=== PATIENT | female | born 1960 | race Two or more races ===

== ENCOUNTER 2018-10-22 08:51 | Inpatient (IN) | payer MEDICAID ==
[~2018-10-22] VITALS: Ht 172.7 cm; Wt 161.5 kg
[2018-10-22] VITALS (64 sets, daily range): BP systolic 58–126; BP diastolic 27–68
--- NOTE | 2018-10-22 09:16 | NUR ---
DWAYNE blankenship, 58 y/o female, 88% sat on room air, confused.
--- NOTE | 2018-10-22 09:17 | NUR ---
Placed on NRB mask, ABG to be done, RT at bedside.
[2018-10-22 09:27] LABS: BASOPHILS % (AUTO) 0.3 % (0.0-2.0); EOSINOPHILS % (AUTO) 0.2 % (0.0-6.0); HEMATOCRIT 29 % (33-45); HEMOGLOBIN 9.3 g/dL (11.5-14.8); LYMPHOCYTES # (AUTO) 0.9 /CMM (0.8-4.8); LYMPHOCYTES % (AUTO) 5.5 % (20.0-44.0); MEAN CORPUSCULAR HGB CONC 32 g/dl (31.0-36.0); MEAN CORPUSCULAR VOLUME 99 fL (82-100); MONOCYTES # (AUTO) 1.4 /CMM (0.1-1.30); NEUTROPHILS # (AUTO) 13.5 /CMM (1.8-8.9); PLATELET COUNT (AUTO) 198 /CMM (150-450); RED BLOOD CELL COUNT(AUTO) 2.92 MIL/uL (4.0-5.2); WHITE BLOOD COUNT (AUTO) 15.8 K/uL (4.3-11.0)
[2018-10-22 09:32] LABS: ABG BASE EXCESS -4.1 mmol/L; ABG OXYGEN SATURATION 99.3 % (92.0-98.5); ABG PCO2 65.8 mmHg (35.0-45.0); ABG PH 7.193 (7.350-7.450); ABG PO2 270.8 mmHg (75.0-100.0); COHb 2.6 % (0.5-1.5); MetHb 0.5 % (0.0-1.5); O2Hb 96.2 % (94.0-97.0); SITE, ABG Left Brachial; VENT MODE, BG non reb 15L
--- NOTE | 2018-10-22 09:46 | NUR ---
at bedside for Central line insertion.
--- NOTE | 2018-10-22 09:59 | NUR ---
Left fem central line placed by
[2018-10-22] MEDS ORDERED: PROPOFOL 100 ML ONE (10:03)
--- NOTE | 2018-10-22 10:04 | NUR ---
LABS DRAWNED VIA CENTRAL CATH AND SENT TO LAB.
[2018-10-22 10:20] LABS: CALCIUM, SERUM 8.7 mg/dL (8.5-10.1); CARBON DIOXIDE 27 mmol/L (21-32); CHLORIDE 99 mmol/L (98-107); CREATININE 3.2 mg/dL (0.6-1.3); GLUCOSE 153 mg/dL (74-106); POTASSIUM 5.9 mmol/L (3.5-5.1); SODIUM SERUM 127 mmol/L (136-145); UREA NITROGEN, BLOOD 42 mg/dL (7-18)
--- NOTE | 2018-10-22 10:20 | NUR ---
Rapid intubation done by MD, 30 Etomidate and 120 Succ given.
--- NOTE | 2018-10-22 10:25 | NUR ---
RT PT CAME FOR RESP DISTRESS, INTUBATED WITH 7.5CM AT 25CM LIP LINE ECO2 COLOR CHANGE EQUAL BILATERAL CHEST RISE, XRAY DONE PULLED OUT TUBE TO 23CM LIP LINE SECURED ON MECH VENT PER MD ORDERS OF AC 14 550 +5 100% DICK WELL NO RESP DISTRESS ATT WILL CONT TO MONITOR Addendum: 10/22/18 at 1100 by MARY BETH PAULINO RT Amended: Links added.
--- NOTE | 2018-10-22 10:28 | NUR ---
CXR at bedside
[2018-10-22] MEDS ORDERED: PIPERACILLIN /TAZOBACTAM 3.375 G in IV D5W 50 ML IV ONE (10:30)
[2018-10-22] MEDS ORDERED: Calcium Gluconate 1GM/10ML 4.65 MEQ in IV NS 0.9% 50 ML IV ONE (10:30)
[2018-10-22] MEDS ORDERED: VANCOMYCIN 1 GM in IV D5W 250 ML IV ONE (10:30)
--- NOTE | 2018-10-22 10:30 | NUR ---
Garcia placed 16 fr.
[2018-10-22 10:31] LABS: APPEARANCE,URINE Turbid (CLEAR); BILIRUBIN,URINE MODERATE (NEGATIVE); BLOOD, URINE Negative Ery/uL (NEGATIVE); COLOR,URINE Dark (YELLOW); KETONES,URINE Trace (NEGATIVE); LEUKOCYTE ESTERASE ,URINE Negative (NEGATIVE); NITRITE, URINE Negative (NEGATIVE); PROTEIN,URINE 100 mg/dl (NEGATIVE); UGLUCOSE Negative (NEGATIVE)
[2018-10-22 10:33] LABS: ALANINE AMINOTRANSFERASE 41 U/L (12-78); ALKALINE PHOSPHATASE 193 U/L (46-116); ASPARTATE AMINOTRANSFERASE 122 U/L (15-37); B-TYPE NATRIURETIC PEPTIDE 218 PG/ML (0-125); BILIRUBIN,DIRECT 2.6 mg/dL (0.0-0.2); BILIRUBIN,TOTAL 3.6 mg/dL (0.2-1.0)
[2018-10-22 10:34] LABS: ALBUMIN 1.3 g/dL (3.4-5.0)
[2018-10-22 10:42] LABS: BACTERIA,URINE Few /HPF (None Seen); RBC,URINE 0-2 /HPF (0-2); SQUAMOUS EPITHELIAL CELL,UR Few /HPF (None Seen); WBC,URINE 0-2 /HPF (0-3)
--- NOTE | 2018-10-22 10:52 | NUR ---
SBP 50's
[2018-10-22] MEDS: NOREPINEPHRINE 8 MG in IV D5W 500 ML IV PRN ×2 (10:54→12:37)
[2018-10-22] MEDS ORDERED: IV NS 0.9% 1,000 ML BAG IV ONE ×2 (11:00→11:30)
--- NOTE | 2018-10-22 11:45 | NUR ---
Report given to Aram HARVEY RN
--- NOTE | 2018-10-22 11:52 | NUR ---
Transferred via ACLS protocol, no significant changes. Placed to bed repositioned.
--- NOTE | 2018-10-22 12:00 | NUR ---
PT RECEIVED PT IN ROOM 263, REPORT FROM JENNIFER, FILM CUTTER. LEVOPHED INFUSING AT 18 MICS, PROPOFOL AT 30MICS. CALM AND COOPERATIVE. WILL TITRATE LEVOPHED NEEDED TO MAINTAIN BP >90. ETT 7.5 25CM AT THE LIP. RHONCHI BILAT CLEARED WITH SUCTIONING. ALIYAH SO HYPOACTIVE. RLE STAPES NOTED, VENOUS STASIS VS. ERYSIPELAS NOTED, MID BACK REDNESS NOTED, PHOTOS OBTAINED. PT REPOSITIONED FOR COMFORT, TEMP 96.8 WARMING BLANKETS APED.
[2018-10-22] MEDS ORDERED: ALBUTEROL FS 2.5 MG/0.5 ML VIAL.NEB NEB PRN (13:00)
[2018-10-22] MEDS ORDERED: PIPERACILLIN /TAZOBACTAM 2.25 G in IV D5W 50 ML IV SCH (13:00)
[2018-10-22] MEDS ORDERED: IPRATROPIUM NEB FS 0.5 MG/2.5 ML AMPUL.NEB NEB PRN (13:00)
[2018-10-22] MEDS ORDERED: DEXTROSE 50%-WATER 50 ML DISP.SYRIN IV PRN (13:00)
[2018-10-22] MEDS ORDERED: IV NS 0.9% 1,000 ML BAG IV PRN (13:00)
--- NOTE | 2018-10-22 13:10 | NUR ---
Partial denture given to DIE ENGRAVERLOOB Cruz.
[2018-10-22] MEDS ORDERED: FEE PK DOSING 1 MIN EA MC ONE (13:25)
--- NOTE | 2018-10-22 13:38 | NUR ---
RT PULLED TUBE 1CM AT 22CM JACQUELINE MICHELLE Addendum: 10/22/18 at 1343 by MARY BETH PAULINO RT Amended: Links added.
[2018-10-22] MEDS ORDERED: NOREPINEPHRINE 8 MG in IV D5W 500 ML IV PRN ×4 (14:00)
[2018-10-22] MEDS: PROPOFOL 100 ML IV PRN ×3 (14:22→20:26)
[2018-10-22] MEDS: IV NS 0.9% 1,000 ML IV PRN (14:26)
[2018-10-22] MEDS: PANTOPRAZOLE 40 MG VIAL IV SCH (14:35)
[2018-10-22] MEDS ORDERED: ETOMIDATE 2 MG/ML VIAL IV ONE (15:20)
[2018-10-22] MEDS ORDERED: SUCCINYLCHOLINE CHLORIDE 20 MG/ML VIAL IV ONE (15:20)
--- NOTE | 2018-10-22 16:30 | NUR ---
KALIE FR #[id number] INSERTED VERIFIED WITH JENNIFER ROBLEDO RN
--- NOTE | 2018-10-22 17:00 | NUR ---
K6.1 FR HAIR NOTIFIED.
[2018-10-22] MEDS ORDERED: BISA10SU8 RC (17:14)
[2018-10-22] MEDS ORDERED: BENA20TA9 PO (17:14)
[2018-10-22] MEDS ORDERED: FURO-144 PO (17:14)
[2018-10-22] MEDS ORDERED: RIFA550T PO (17:14)
[2018-10-22] MEDS ORDERED: MAGN400O6 PO (17:14)
[2018-10-22] MEDS ORDERED: FERR325T23 PO (17:14)
[2018-10-22] MEDS ORDERED: INSU100V11 SQ (17:14)
[2018-10-22] MEDS ORDERED: MORP15TA PO (17:14)
[2018-10-22] MEDS ORDERED: HYDR-4384 PO (17:14)
[2018-10-22] MEDS ORDERED: LACT10SO PO (17:14)
[2018-10-22] MEDS ORDERED: NA P133E RC (17:14)
[2018-10-22] MEDS ORDERED: TRAM50TA2 PO (17:14)
[2018-10-22] MEDS ORDERED: MULT-447 PO (17:14)
[2018-10-22] MEDS ORDERED: BLOO-668 IN (17:15)
[2018-10-22] MEDS: INSULIN REGULAR, HUMAN 100 UNIT/ML 3 ML VIAL SQ PRN (17:43)
[2018-10-22] MEDS: PIPERACILLIN /TAZOBACTAM 3.375 G in IV D5W 100 ML IV SCH (17:43)
[2018-10-22] MEDS: BLOOD SUGAR DIAGNOSTIC 1 EACH STRIP IN SCH (17:44)
[2018-10-22] MEDS ORDERED: SODIUM POLYSTYRENE SULFONATE 15 G/60 ML BOTTLE PO ONE ×2 (18:30→19:00)
--- NOTE | 2018-10-22 19:48 | NUR ---
PT REC'D ORALLY INTUBATED VIA ETT SZ #7.5 SECURED @ 22CM AT THE LIP LINE. PT APPEARS COMFORTABLE AND SHOWS NO SIGNS OF RESP DISTRESS OR SOB ON CURRENT VENTILATOR SETTINGS. SX'D FOR SMALL AMT OF THICK YELLOW SECRETIONS. ALARMS ARE SET AND AUDIBLE. VENT PLUGGED INTO RED OUTLET. AMBU BAG BEDSIDE. WILL CONTINUE TO MONITOR CLOSELY Addendum: 10/22/18 at 1950 by CANDIDA HOSKINS RT Amended: Links added.
[2018-10-22] MEDS: NOREPINEPHRINE 16 MG in IV D5W 500 ML IV PRN (20:14)
--- NOTE | 2018-10-22 20:30 | NUR ---
RN NOTES RECEIVED PT SEDATED WITH DIPRIVAN WITH ETT 7.5 ANS 22 CM AT LIP CONNECTED TO VENT SETTING AC 14 TV 550 FIO2 80% WITH PEEP 5 TOLERATED WELL SATURATION 100%. NSR ON TELE MONITOR. RESPONSIVE TO PAIN WITH OGT INTACT AND PATENT CHECKED. IV SITE ON LEFT FEMORAL TLC RECEIVED WITH LEVO @ 24 MCG/MIN AND DIPRIVAN @ 30 MCG/KG/MIN TITRATED PROTOCOL ORDER. JUAN F HUGGER IN PLACED DUE TO HYPOTHERMIA REMOVED AT THIS TIME DUE TO TEMP 99.5. OFFLOADED EXT WITH PILLOWS. TURNED AND REPOSITIONED. PT IS CLEANED AND DRY. WILL CONTINUE TO MONITOR.
[2018-10-22] MEDS: HEPARIN SODIUM, PORCINE 5000 UNITS/1 ML VIAL SQ SCH (20:38)
[2018-10-22] MEDS ORDERED: SODIUM POLYSTYRENE SULFONATE 15 G/60 ML BOTTLE ONE (20:55)
--- NOTE | 2018-10-22 21:00 | NUR ---
RN NOTES FIO2 CHANGED TO 60% BY CANDIDA RT. PT TOLERATED WELL SATURATION 100%. WILL CONTINUE MONITOR
--- NOTE | 2018-10-22 23:10 | NUR ---
RN NOTES CHANGED FIO2 TO 50% BY RT. SATURATION 100%. TOLERATED WELL
[2018-10-23] VITALS (112 sets, daily range): BP systolic 69–119; BP diastolic 31–93
[2018-10-23] MEDS: PROPOFOL 100 ML IV PRN ×5 (00:04→22:59)
[2018-10-23] MEDS: BLOOD SUGAR DIAGNOSTIC 1 EACH STRIP IN SCH ×5 (00:07→23:43)
[2018-10-23] MEDS: IV NS 0.9% 1,000 ML IV PRN ×3 (00:10→21:27)
--- NOTE | 2018-10-23 01:15 | NUR ---
RN NOTES FIO2 CHANGED TO 40% BY CANDIDA RT. PT REMAINED SEDATED SATURATION 100% TOLERATED WELL. WILL CONTINUE TO MONITOR.
[2018-10-23] MEDS ORDERED: NOREPINEPHRINE 4 MG/4 ML AMPUL IV ONE (04:14)
[2018-10-23] MEDS: NOREPINEPHRINE 16 MG in IV D5W 500 ML IV PRN ×4 (04:22→23:44)
[2018-10-23 04:34] LABS: BASOPHILS # (AUTO) 0.1 /CMM (0.0-0.2); BASOPHILS % (AUTO) 0.5 % (0.0-2.0); EOSINOPHILS % (AUTO) 1.2 % (0.0-6.0); HEMATOCRIT 27 % (33-45); HEMOGLOBIN 8.9 g/dL (11.5-14.8); LYMPHOCYTES # (AUTO) 2.3 /CMM (0.8-4.8); LYMPHOCYTES % (AUTO) 13.3 % (20.0-44.0); MEAN CORPUSCULAR HGB CONC 33 g/dl (31.0-36.0); MEAN CORPUSCULAR VOLUME 95 fL (82-100); MONOCYTES # (AUTO) 2.1 /CMM (0.1-1.30); NEUTROPHILS # (AUTO) 12.8 /CMM (1.8-8.9); PLATELET COUNT (AUTO) 180 /CMM (150-450); RED BLOOD CELL COUNT(AUTO) 2.85 MIL/uL (4.0-5.2); WHITE BLOOD COUNT (AUTO) 17.6 K/uL (4.3-11.0)
[2018-10-23 04:45] LABS: CALCIUM, SERUM 7.8 mg/dL (8.5-10.1); POTASSIUM 5.7 mmol/L (3.5-5.1)
[2018-10-23] MEDS: PIPERACILLIN /TAZOBACTAM 3.375 G in IV D5W 100 ML IV SCH ×2 (05:30→17:15)
--- NOTE | 2018-10-23 07:08 | NUR ---
RN NOTES PATIENT REMAINED IN THE SAME CONDITION. CONITNEU WITH ETT AND VENT SETTING ORDERED. NO ACUTE RESPIRATORY DISTRESS. TMAX 100 DEGREE. FHARENHEIGHT. IV SITE ON LEFT FEMORAL REMAINED INTACT AND PATENT WITH DIPRIVAN AND LEVOPHED RUNNING TITRATED ORDERED. ALL DUE MEDICINE ADMINISTERED ORDERED. PT ICS CLEANED AND DRY. ENDORSED CONTINUITY OF CARE TO AM NURSE. PT WILL HAVE THORACENTESIS TODAY CONSENT SIGNED.
--- NOTE | 2018-10-23 08:17 | NUR ---
INITIAL DRYWALL PROFESSIONAL NOTE RCVD PT LIGHTLY SEDATED ON DIPRIVAN, ABLE TO OPEN EYES TO NAME AND FOLLOW SIMPLE COMMANDS SUCH OPENING MOUTH AND STICKING TONGUE OUT, AND SQUEEZING WITH HANDS, INTUBATED 7.5 22 AT LIP TOLERATING ORDERED VENT SETTINGS WELL, SR ON MONITOR. OG-TUBE CLOGGED, NEW OG-TUBE INSERTED. LIMON TO GRAVITY DRAINING ALEXIS COLORED URINE. DEVYN OVER RIGHT KNEE REMAIN INTACT. LEFT FEMORAL TLC C/D/I/PATENT, IVF INFUSING ORDERED. PT ON HIGH DOSE LEVOPHED. WILL CONTINUE TO MONITOR PT FOR SAFETY AND COMFORT. BE DIN LOW AND LOCKED POSITION. HEAD OF BED ELEVATED, CALL LIGHT WITHIN REACH.
[2018-10-23] MEDS: HEPARIN SODIUM, PORCINE 5000 UNITS/1 ML VIAL SQ SCH ×2 (08:39→21:32)
[2018-10-23] MEDS ORDERED: IV NS 0.9% 500 ML IV ONE (10:00)
[2018-10-23] MEDS ORDERED: SODIUM POLYSTYRENE SULFONATE 15 G/60 ML BOTTLE PO ONE (10:00)
[2018-10-23] MEDS: VANCOMYCIN 1 GM in IV D5W 250 ML IV SCH (11:00)
--- NOTE | 2018-10-23 11:02 | NUR ---
WOUND CARE CONSULT: PT PRESENTS WITH MULTIPLE SKIN ISSUES INCLUDING BILATERAL BUTTOCKS INTACT DEEP TISSUE INJURIES, MIDBACK STAGE 1 REDNESS, RT KNEE DEVYN, SCARRING TO RT LOWER LEG AND RT BREASTFOLD REDNESS WITH CRUSTED AREA, ALL PRESENT ON ADMISSION. PT ON [place] ETS AIR BED. PT INTUBATED AT THIS TIME. ASHLY LAST NOTED. ALL SKIN PROTECTION AND WOUND CARE RECOMMENDATIONS DISCUSSED WITH NURSING STAFF. CURRENT JUSTIN SCORE IS 12. WILL SEE PRN. PEREZ IN AGREEMENT WITH PLAN OF CARE. Addendum: 10/23/18 at 1105 by CINDY CHAVEZ WNDNU Amended: Links added.
[2018-10-23 11:03] LABS: ABG OXYGEN SATURATION 94.4 % (92.0-98.5); ABG PCO2 46.9 mmHg (35.0-45.0); ABG PH 7.327 (7.350-7.450); ABG PO2 82.9 mmHg (75.0-100.0); AaDO2 148.4 mmHg; COHb 0.1 % (0.5-1.5); MetHb 0.7 % (0.0-1.5); O2Hb 93.6 % (94.0-97.0); PEEP,BG 5 cm H2O; SITE, ABG Right Radial; VT, ABG 550 mL
[2018-10-23] MEDS: INSULIN REGULAR, HUMAN 100 UNIT/ML 3 ML VIAL SQ PRN ×3 (11:15→23:55)
--- NOTE | 2018-10-23 11:28 | NUR ---
PUBLIC ADDRESS SYSTEMS MECHANIC NOTE SPOKE WITH PT'S DAUGHTER ALISON OVER THE PHONE, SHE WAS UPDATED ON PT'S CONDITION, QUESTIONS ANSWERED TO HER SATISFACTION.
[2018-10-23] MEDS: Z GUARD REMEDY 2 OZ OINT TP SCH (12:42)
[2018-10-23] MEDS: PANTOPRAZOLE 40 MG VIAL IV SCH (12:42)
[2018-10-23] MEDS: IPRATROPIUM NEB FS 0.5 MG/2.5 ML AMPUL.NEB NEB SCH ×4 (13:00→23:30)
[2018-10-23] MEDS: ALBUTEROL FS 2.5 MG/0.5 ML VIAL.NEB NEB SCH ×4 (13:00→23:30)
--- NOTE | 2018-10-23 15:00 | NUR ---
LITURGICAL MUSIC DIRECTOR NOTE PT UNDERWENT RIGHT SIDED US GUIDED THORACENTESIS, CHEST X-RAY DONE POST PROCEDURE NO PNEUMOTHORAX FOUND. WILL CONTINUE TO MONITOR PT.
--- NOTE | 2018-10-23 17:56 | NUR ---
RT END OF THE SHIFT REPORT, PT. 58 Y OLD FEMALE REC'D 0630 AM ORALLY INTUBATED ETT #7.5 @22CM LIP LINE. PT. SEDATED APPEARS COMFORTABLE AND SHOWS NO SIGNS OF RESP DISTRESS OR SOB ON VENT. WITH NOTED SETTINGS. SX'D FOR LARGE AMT OF THICK YELLOW SECRETIONS. B/S BILATERALLY RHONCHI, EQUAL CHEST RISE NOTED. ALARMS ARE SET AND FUNCTIONAL. VENT PLUGGED INTO RED OUTLET. AMBU BAG BEDSIDE. ABG DONE T/O DAY NO CHANGES PER MD. WILL CONTINUE TO MONITOR CLOSELY. REPORT WILL PASS TO PM SHIFT. Addendum: 10/23/18 at 1803 by GRACE DARDEN RT Amended: Links added.
--- NOTE | 2018-10-23 18:51 | NUR ---
DANCING MASTER NOTE PT REMAINS SEDATED, INTUBATED, OPENS EYES TO NAME, AND ABLE TO FOLLOW COMMANDS, SR ON MONITOR. TOLERATING ORDERED VENT SETTINGS WELL. OG-TUBE PLACEMENT VERIFIED BY AUSCULTATION/ASPIRATION OF GASTRIC CONTENTS, LIMON TO GRAVITY WITH CLOUDY, ALEXIS COLORED URINE, LEFT FEMORAL LINE DRESSING CHANGED, LINE REMAINS C/D/I/PATENT. PT'S CARE WILL BE ENDORSED TO ACCOUNTANT CERTIFIED PUBLIC RN FOR CONTINUITY OF CARE, BED IN LOW AND LOCKED POSITION. CALL LIGHT WITHIN REACH. HEAD OF BED ELEVATED.
--- NOTE | 2018-10-23 19:30 | NUR ---
RN NOTES PT IS ORALLY INTUBATED AND SEDATED WITH DIPRIVAN WITH ETT 7.5 ANS 22 CM AT LIP CONNECTED TO VENT SETTING AC 14 TV 550 FIO2 40% WITH PEEP 5 TOLERATED WELL SATURATION 100%. NSR ON TELE MONITOR. RESPONSIVE TO PAIN , OGT INTACT AND PATENT CHECKED. IV SITE ON LEFT FEMORAL TLC RECEIVED WITH LEVO @ 36MCG/MIN AND DIPRIVAN @ 20 MCG/KG/MIN TITRATED PROTOCOL ORDER. OFFLOADED EXT WITH PILLOWS. TURNED AND REPOSITIONED. PT IS CLEANED AND DRY. WILL CONTINUE TO MONITOR.
[2018-10-24] VITALS (109 sets, daily range): BP systolic 89–127; BP diastolic 27–95
[2018-10-24] MEDS: PROPOFOL 100 ML IV PRN ×3 (02:53→16:55)
[2018-10-24] MEDS: IPRATROPIUM NEB FS 0.5 MG/2.5 ML AMPUL.NEB NEB SCH ×6 (02:57→23:31)
[2018-10-24] MEDS: ALBUTEROL FS 2.5 MG/0.5 ML VIAL.NEB NEB SCH ×6 (02:57→23:31)
[2018-10-24 05:18] LABS: BASOPHILS # (AUTO) 0.1 /CMM (0.0-0.2); BASOPHILS % (AUTO) 0.6 % (0.0-2.0); EOSINOPHILS % (AUTO) 2.8 % (0.0-6.0); HEMATOCRIT 25 % (33-45); HEMOGLOBIN 8.4 g/dL (11.5-14.8); LYMPHOCYTES % (AUTO) 17.4 % (20.0-44.0); MEAN CORPUSCULAR HGB CONC 33 g/dl (31.0-36.0); MEAN CORPUSCULAR VOLUME 94 fL (82-100); MONOCYTES # (AUTO) 1.7 /CMM (0.1-1.30); MONOCYTES % (AUTO) 14.5 % (2.0-12.0); NEUTROPHILS # (AUTO) 7.4 /CMM (1.8-8.9); NEUTROPHILS % (AUTO) 64.7 % (43.0-81.0); PLATELET COUNT (AUTO) 125 /CMM (150-450); RED BLOOD CELL COUNT(AUTO) 2.68 MIL/uL (4.0-5.2); WHITE BLOOD COUNT (AUTO) 11.4 K/uL (4.3-11.0)
[2018-10-24 05:22] LABS: BILIRUBIN,TOTAL 2.4 mg/dL (0.2-1.0); CALCIUM, SERUM 7.5 mg/dL (8.5-10.1); CREATININE 2.6 mg/dL (0.6-1.3); MAGNESIUM 2.2 mg/dL (1.8-2.4); POTASSIUM 5.1 mmol/L (3.5-5.1); TOTAL PROTEIN, SERUM 5.1 g/dL (6.4-8.2)
[2018-10-24] MEDS: PIPERACILLIN /TAZOBACTAM 3.375 G in IV D5W 100 ML IV SCH ×2 (06:29→17:44)
[2018-10-24] MEDS: NOREPINEPHRINE 16 MG in IV D5W 500 ML IV PRN ×2 (06:32→15:43)
[2018-10-24] MEDS: BLOOD SUGAR DIAGNOSTIC 1 EACH STRIP IN SCH ×4 (06:38→23:11)
[2018-10-24] MEDS: INSULIN REGULAR, HUMAN 100 UNIT/ML 3 ML VIAL SQ PRN ×4 (06:39→23:12)
--- NOTE | 2018-10-24 07:10 | NUR ---
RN NOTES REMAINED IN THE SAME CONDITION. NO SIGNIFICANT CHANGED THROUGHOUT THE SHIFT. AFEBRILE. ORALLY INTUBATED AND VENT SETTING TOLERATED WELL. BED BATH DONE WITH MAXIMUM ASSISTANCE. IV ATB GIVEN ORDERED. CONTINUE WITH DIPRIVAN AND LEVOPHED TITRATED ORDERED. KEPT PT CLEAN AND DRY, ENDORSED CONTINUITY OF CARE TO AM NURSE/
--- NOTE | 2018-10-24 07:48 | NUR ---
INITIAL SACK MAKER NOTE RCVD PT LIGHTLY SEDATED, INTUBATED ETT 7.5 22 AT LIP LINE, BILATERAL WRISTS RESTRAINTS IN PLACE, CIRCULATION CHECKS DONE. SR ON MONITOR, TOLERATING ORDERED VENT SETTINGS WELL. OG-TUBE PLACEMENT VERIFIED BY AUSCULTATION/ASPIRATION OF GASTRIC CONTENTS. LIMON TO GRAVITY DRAINING CLEAR, YELLOW URINE. LEFT FEMORAL TLC C/D/I/PATENT, NO S/O INFILTRATION/PHLEBITIS OBSERVED IVF INFUSING ORDERED, HIGH DOSE LEVO INFUSING. WILL CONTINUE TO MONITOR PT FOR SAFETY AND COMFORT. BED IN LOW AND LOCKED POSITION. CALL LIGHT WITHIN REACH. HEAD OF BED ELEVATED. PT'S DAUGHTER, ALISON CALLED AND WAS UPDATED REGARDING PT'S CONDITION OVER THE PHONE, QUESTIONS WERE ANSWERED TO HER SATISFACTION.
[2018-10-24] MEDS: IV NS 0.9% 1,000 ML IV PRN ×2 (08:08→22:02)
[2018-10-24] MEDS: Z GUARD REMEDY 2 OZ OINT TP SCH (08:09)
[2018-10-24 09:09] LABS: ABG BASE EXCESS -3.2 mmol/L; ABG OXYGEN SATURATION 96.7 % (92.0-98.5); ABG PCO2 37.4 mmHg (35.0-45.0); ABG PH 7.379 (7.350-7.450); ABG PO2 100.4 mmHg (75.0-100.0); AaDO2 141.8 mmHg; COHb 0.1 % (0.5-1.5); MetHb 0.7 % (0.0-1.5); O2Hb 95.9 % (94.0-97.0); PEEP,BG 5 cm H2O; SITE, ABG Right Radial; VT, ABG 550 mL
[2018-10-24] MEDS: HEPARIN SODIUM, PORCINE 5000 UNITS/1 ML VIAL SQ SCH ×2 (09:19→21:08)
--- NOTE | 2018-10-24 09:37 | NUR ---
MANAGEMENT PROFESSIONAL NOTE DR. HAIR IN UNIT INFORMED OF PT'S HGB TRENDING DOWN RECOMMENDED TO GIVE PRBC X 1 AND CONTINUE WITH HEPARIN REGIMEN FOR VTE PREVENTION. PT'S DIPRIVAN DOWN TO 10 MCG/MIN PT ABLE TO FOLLOW COMMANDS IN [place] SUCH OPENING EYES, SQUEEZING WITH BILATERAL HANDS, AND STICKING TONGUE OUT. PT APPEARS MORE CALM AND COOPERATIVE COMPARED TO YESTERDAY. BETTER URINARY OUTPUT. DR. ESCOBAR INFORMED OF ABOVE POSSIBLE WEANING TOMORROW.
[2018-10-24] MEDS: VANCOMYCIN 1 GM in IV D5W 250 ML IV SCH (11:31)
[2018-10-24] MEDS: PANTOPRAZOLE 40 MG VIAL IV SCH (12:55)
--- NOTE | 2018-10-24 13:16 | NUR ---
LINUX SYSTEMS ANALYST NOTE WENT TO BLOOD BANK TO THROUGH OPERATOR PRBC SINCE APPEARED READY ON [employer] PER MARINE OILER PRBC NOT READY YET PENDING SECOND TYPE AND SCREEN. SECOND TYPE AND SCREEN JUST DRAWN. WILL F/U.
--- NOTE | 2018-10-24 18:25 | NUR ---
HEAVY EQUIPMENT SALES ASSOCIATE NOTE PT REMAINS STABLE, INTUBATED, LIGHTLY SEDATED, ABLE TO OPEN EYES TO NAME AND FOLLOW SIMPLE COMMANDS, SR ON MONITOR, TOLERATING ORDERED VENT SETTINGS. OG-TUBE PLACEMENT VERIFIED BY AUSCULTATION/ASPIRATION OF GASTRIC CONTENTS, LIMON TO GRAVITY DRAINING CLEAR, YELLOW URINE, DEVYN OVER RIGHT LATERAL KNEE REMAIN INTACT. LEFT FEMORAL TLC C/D/I/PATENT, IVF INFUSING ORDERED, LEVOPHED TITRATED ORDERED. BLOOD TRANSFUSION BEGUN PT TOLERATED FIRST 15 MINUTES WITHOUT ANY SIGNS OF REACTION. VITAL SIGNS REMAIN STABLE. PT'S CARE WILL BE ENDORSED TO MAGNETIC OBSERVER RN FOR CONTINUITY OF CARE. BED IN LOW AND LOCKED POSITION. HEAD OF BED ELEVATED, CALL LIGHT WITHIN REACH.
--- NOTE | 2018-10-24 18:30 | NUR ---
ADDENDUM TO NOTE DR. HAIR AWARE OF PT'S ALBUMIN 1.0 THIS AM, NO REPLACEMENT ORDERED OR RECOMMENDED AT THIS TIME. WILL CONTINUE TO MONITOR.
--- NOTE | 2018-10-24 19:30 | NUR ---
MARKETING RESEARCHER RCD PT W/DX RESP FAIL; PT IS SEDATED ON PROPOFOL AT 10 MCG/KG/MIN; PT IS ADEQUATELY SEDATED BUT DOES WAKE UP UPON STIMULATION; BILATERAL SOFT WRIST RESTRAINTS IN PLACE TO PREVENT PULLING OF TUBES/LINES. LEVOPHED AT 18 MCG/MIN W/ORDERS TO TITRATE FOR SBP >90. OG TUBE CLAMPED. INTUBATED 7.5 @ 22 W/VENT SETTINGS AC 14 550 40% +5. RENDERED ORAL CARE; PT NOTED WITH SMALL AMOUNT OF THIN WHITE SECRETIONS. LIMON CATHETER DRAINING ADEQUATE AMOUNT OF YELLOW URINE. L FEM TLC PATENT AND WITH GOOD BLOOD RETURN. DEVYN NOTED TO RIGHT KNEE. PT NOTED WEEPING FROM BUE. PLAN TO WEAN IN AM.
--- NOTE | 2018-10-24 20:20 | NUR ---
SOLDERER TORCH RCD CALL FROM PTS DAUGHTER DAVID; UPDATED ON PLAN OF CARE; PER DAVID SHE IS REQUESTING TO BE AT BEDSIDE WHEN PT IS WEANED. PLANS TO ARRIVE BETWEEN -[phone] TOMORROW.
--- NOTE | 2018-10-24 20:26 | NUR ---
RECEIVED PT INTUBATED 7.5 ETT SECURED AT 22CM AT THE LIP. NO RESP DISTRESS. PT TOLERATING VENT SETTINGS. SX'D FOR MOD AMT OF THIN WHITE SECRETIONS. VENT ALARMS SET AND AUDIBLE. AMBU BAG AT BEDSIDE. VENT PLUGGED INTO RED OUTLET. WILL CONTINUE TO MONITOR. Addendum: 10/24/18 at 2026 by PHILL GUZMAN RT Amended: Links added.
--- NOTE | 2018-10-24 20:45 | NUR ---
SOCIAL MEDIA SR STRATEGY MANAGER ONE UNIT PRBC INFUSING.
--- NOTE | 2018-10-24 20:45 | NUR ---
LIBRARY SCIENCE PROFESSOR PT NOTED TO BE AWAKE AND GRIMACING. PROPOFOL INCREASED TO 15 MCG/KG/MIN. CONTINUE TO MONITOR. BLOOD TRANSFUSION COMPLETE AT THIS TIME.
[2018-10-25] VITALS (65 sets, daily range): BP systolic 67–113; BP diastolic 35–62
[2018-10-25] MEDS: PROPOFOL 100 ML IV PRN (02:15)
[2018-10-25] MEDS: IPRATROPIUM NEB FS 0.5 MG/2.5 ML AMPUL.NEB NEB SCH ×6 (03:10→23:00)
[2018-10-25] MEDS: ALBUTEROL FS 2.5 MG/0.5 ML VIAL.NEB NEB SCH ×6 (03:11→23:00)
[2018-10-25 04:54] LABS: CALCIUM, SERUM 7.3 mg/dL (8.5-10.1); CREATININE 1.8 mg/dL (0.6-1.3); MAGNESIUM 2.3 mg/dL (1.8-2.4); POTASSIUM 4.6 mmol/L (3.5-5.1)
[2018-10-25] MEDS: PIPERACILLIN /TAZOBACTAM 3.375 G in IV D5W 100 ML IV SCH ×2 (05:00→17:01)
[2018-10-25] MEDS: IV NS 0.9% 100 ML IV PRN (05:00)
[2018-10-25] MEDS: BLOOD SUGAR DIAGNOSTIC 1 EACH STRIP IN SCH ×4 (06:08→23:34)
[2018-10-25] MEDS: NOREPINEPHRINE 16 MG in IV D5W 500 ML IV PRN ×2 (06:09→21:14)
[2018-10-25] MEDS: INSULIN REGULAR, HUMAN 100 UNIT/ML 3 ML VIAL SQ PRN ×4 (06:35→23:33)
--- NOTE | 2018-10-25 08:19 | NUR ---
pt. is fully awake and follow commands, changes made below on vent for weaning trial per dr. rangel: simv 4 vt 550 ps 12 fio2 40% peep 5 Addendum: 10/25/18 at 0821 by JORI URIAS RT Amended: Links added.
--- NOTE | 2018-10-25 08:36 | NUR ---
REPORT RECEIVED FROM JHONATAN DIAMOND; DAUGHTER JOSSE AT BEDSIDE; GIVEN UPDATES ON PLANS TO TRY SIMV TODAY; REMAINS ON BILATERAL SOFT WRIST RESTRAINTS
[2018-10-25] MEDS: HEPARIN SODIUM, PORCINE 5000 UNITS/1 ML VIAL SQ SCH ×2 (08:52→20:17)
[2018-10-25] MEDS: Z GUARD REMEDY 2 OZ OINT TP PRN (08:53)
[2018-10-25] MEDS: Z GUARD REMEDY 2 OZ OINT TP SCH (09:00)
[2018-10-25] MEDS ORDERED: DC PROPOFOL WHEN EXTUBATED XX PRN (09:00)
[2018-10-25 09:26] LABS: ABG OXYGEN SATURATION 97.4 % (92.0-98.5); ABG PCO2 41.1 mmHg (35.0-45.0); ABG PH 7.384 (7.350-7.450); ABG PO2 112.8 mmHg (75.0-100.0); AaDO2 125.1 mmHg; COHb 0.7 % (0.5-1.5); MetHb 0.5 % (0.0-1.5); O2Hb 96.2 % (94.0-97.0); PEEP,BG 5 cm H2O; SITE, ABG Right Radial; VENT MODE, BG SIMV 4 / PS 12; VT, ABG 550 mL
--- NOTE | 2018-10-25 09:49 | NUR ---
vent changes below made per dr. rangel: cpap 5 ps 10 fio2 40% rn aware on changes made. Addendum: 10/25/18 at 0951 by JORI URIAS RT Amended: Links added.
[2018-10-25 10:43] LABS: ABG BASE EXCESS -0.6 mmol/L; ABG OXYGEN SATURATION 97.4 % (92.0-98.5); ABG PCO2 42.6 mmHg (35.0-45.0); ABG PH 7.379 (7.350-7.450); ABG PO2 113.1 mmHg (75.0-100.0); AaDO2 123.1 mmHg; COHb 0.6 % (0.5-1.5); MetHb 0.4 % (0.0-1.5); O2Hb 96.4 % (94.0-97.0); SITE, ABG Right Radial
--- NOTE | 2018-10-25 10:55 | NUR ---
PT IS FULLY AWAKE AND ALERT CAN LEFT HER HEAD WITHOUT HELP, EXTUBATED PER DR. ESCOBAR. PLACED ON 2LPM O2 FLOW VIA NASAL CANNULA. SPO2 97 - 99% HR 98 BPM RR 17 - 22 BPM Addendum: 10/25/18 at 1106 by JORI URIAS RT Amended: Links added.
--- NOTE | 2018-10-25 10:55 | NUR ---
DR ESCOBAR AWARE OF LATEST ABG RESULTS, AT BEDSIDE WITH ODER TO EXTUBATE PT; EXTUBATED C/O RT AT 1055; ENCOURAGED COUGHING AND DEEP BREATHING
[2018-10-25] MEDS: VANCOMYCIN 1 GM in IV D5W 250 ML IV SCH (11:30)
[2018-10-25] MEDS: PANTOPRAZOLE 40 MG VIAL IV SCH (12:24)
[2018-10-25] MEDS: ACETAMINOPHEN 650 MG/20.3 ML UDC NG PRN (12:24)
[2018-10-25 12:47] LABS: ABG BASE EXCESS -2.6 mmol/L; ABG PCO2 42.7 mmHg (35.0-45.0); ABG PH 7.348 (7.350-7.450); ABG PO2 97.2 mmHg (75.0-100.0); AaDO2 117.2 mmHg; COHb 0.5 % (0.5-1.5); MetHb 0.8 % (0.0-1.5); O2Hb 94.8 % (94.0-97.0); SITE, ABG Right Radial; VENT MODE, BG nasal cannula
[2018-10-25] MEDS: IV NS 0.9% 1,000 ML IV PRN (16:48)
--- NOTE | 2018-10-25 19:00 | NUR ---
RECEIVED PT IN NO ACUTE DISTRESS IN BED. PT IS A/O X 3 AND ABLE TO MAKE NEEDS KNOWN. PT IS CHINESE SPEAKING WITH A LITTLE UNDERSTANDING OF LAO. PT IS ON O2 VIA NC @ 4LPM AND TOLERATING WELL. PT IS ON TELE WITH SR-ST ON THE MONITOR. PT HAS F/C THAT IS CLEAN DRY INTACT AND PATENT WITH YELLOW URINE DRAINING. PT HAS LEFT FEMORAL TLC THAT IS CLEAN DRY INTACT AND PATENT WITH LEVO @ 14MCG, NS @ 100ML/HR. BED IN LOW LOCK POSITION WITH RAILS UP X 2. CALL LIGHT WITHIN REACH AND ALL SAFETY MEASURES ENSURED AND CARRIED OUT. WILL CONTINUE TO MONITOR PT.
--- NOTE | 2018-10-25 19:11 | NUR ---
REPORT GIVEN TO VITALIY DIAMOND
--- NOTE | 2018-10-25 19:58 | NUR ---
NOTIFIED DR HAIR THAT PATIENT HAS PAIN IN THE UPPER SHOULDER BILATERALLY OF 8. RECEIVED ORDERS TO GIVE OXY 5MG Q4H PRN FOR PAIN. READ BACK ORDERS PERFORMED AND CARRIED OUT.
[2018-10-25] MEDS: oxyCODONE IR immediate release 5 MG PO PRN (20:16)
--- NOTE | 2018-10-25 20:30 | NUR ---
UNABLE TO SCAN MEDICATION DUE TO SCANNER NOT WORKING. WILL INPUT MEDICATION MANUALLY AND SEARCH FOR ANOTHER COMPUTER. WILL OPEN A TICKET FOR NON WORKING SCANNER.
--- NOTE | 2018-10-25 22:39 | NUR ---
PT REMAINS IN NO ACUTE DISTRESS IN BED.
--- NOTE | 2018-10-25 22:39 | NUR ---
ENDORSED REPORT TO PARESH EDDY CURRENT INSPECTOR FOR CONTINUITY OF CARE.
--- NOTE | 2018-10-25 22:57 | NUR ---
INVENTORY CONTROL COORDINATOR.RECEIVED THE PT FROM VITALIY DIAMOND. OT TODAY EXTUBATED. OXYGEN 4L VIA NASAL CANNULA. SAT 98%. HOT METAL CAR OPERATOR SHOWING S TACH. IV LT FEMORAL TRIPLE LUMEN. . LEVO 16MCG/MIN,IVF NS 100ML/H. FC PATENT. HOB ELEVATED. NPO. WILL CONTINUE TO MONITOR VITALS.
[2018-10-26] VITALS (89 sets, daily range): BP systolic 80–133; BP diastolic 41–96
[2018-10-26] MEDS: oxyCODONE IR immediate release 5 MG PO PRN ×5 (00:46→20:34)
--- NOTE | 2018-10-26 03:45 | NUR ---
HAWK MISSILE AIR DEFENSE ARTILLERY. AM CARE, ORAL CARE, BED BATH GIVEN. LINEN CHANGED. REMAINING SAME OXYGEN TOLERATED WELL. SAT 99%. REVERSE LOGISTICS ANALYST SHOWING S TACH. IV LT FEMORA. IVF NS 100ML/H, F PATENT. URINE DRAINING. HOB ELEVATED. NPO. LEVOPHED 16MCG/MIN. TURN AND REPOSITION Q2H. WILL CONTINUE TO MONITOR VITALS.
[2018-10-26] MEDS: ALBUTEROL FS 2.5 MG/0.5 ML VIAL.NEB NEB SCH ×5 (03:55→19:52)
[2018-10-26] MEDS: IPRATROPIUM NEB FS 0.5 MG/2.5 ML AMPUL.NEB NEB SCH ×5 (03:55→19:52)
[2018-10-26] MEDS: IV NS 0.9% 1,000 ML IV PRN ×2 (03:59→15:03)
[2018-10-26 04:45] LABS: BASOPHILS % (AUTO) 0.1 % (0.0-2.0); EOSINOPHILS % (AUTO) 2.7 % (0.0-6.0); HEMATOCRIT 25 % (33-45); HEMOGLOBIN 8.5 g/dL (11.5-14.8); LYMPHOCYTES # (AUTO) 0.8 /CMM (0.8-4.8); LYMPHOCYTES % (AUTO) 11.5 % (20.0-44.0); MEAN CORPUSCULAR HGB CONC 34 g/dl (31.0-36.0); MEAN CORPUSCULAR VOLUME 94 fL (82-100); MONOCYTES # (AUTO) 0.8 /CMM (0.1-1.30); MONOCYTES % (AUTO) 12.1 % (2.0-12.0); NEUTROPHILS # (AUTO) 4.9 /CMM (1.8-8.9); NEUTROPHILS % (AUTO) 73.6 % (43.0-81.0); PLATELET COUNT (AUTO) 60 /CMM (150-450); RED BLOOD CELL COUNT(AUTO) 2.67 MIL/uL (4.0-5.2); WHITE BLOOD COUNT (AUTO) 6.7 K/uL (4.3-11.0)
[2018-10-26 04:55] LABS: CALCIUM, SERUM 7.7 mg/dL (8.5-10.1); CREATININE 1.3 mg/dL (0.6-1.3); MAGNESIUM 2.4 mg/dL (1.8-2.4); POTASSIUM 4.2 mmol/L (3.5-5.1)
[2018-10-26 05:29] LABS: EOSINOPHILS % (MANUAL) 5 % (0-4); LYMPHOCYTES % (MANUAL) 8 % (16-48); MONOCYTES % (MANUAL) 10 % (0-11.0); NEUTROPHILS % (MANUAL) 77 (42-76)
[2018-10-26] MEDS: PIPERACILLIN /TAZOBACTAM 3.375 G in IV D5W 100 ML IV SCH (06:12)
[2018-10-26] MEDS: BLOOD SUGAR DIAGNOSTIC 1 EACH STRIP IN SCH ×4 (06:12→23:50)
[2018-10-26] MEDS: INSULIN REGULAR, HUMAN 100 UNIT/ML 3 ML VIAL SQ PRN ×3 (06:18→17:55)
--- NOTE | 2018-10-26 08:49 | NUR ---
RN NOTE 0715: Received patient awake, alert to self. [place] speking, noted with coughing. Garcia cath intact, noted with clear anamaria colored urine drained to BSD. Left Fem TLC intact, per previous nurse, only one port is able to be flushed. On NS @ 100 and Levo @ 16, will titrate as ordered. ST 100's on the monitor. 0840: [employer] called reported VRE blood per CN Chelsey DIAMOND. Ordered iso cart, will place in iso prec for VRE in blood. 0845: S/E by Dr. Gonsalez, made aware for BC result, ordered to DC Zosyn and change to Merrem. Made aware Heparin held for Plt 60. also ordered for speech eval secondary to coughing a lot.
[2018-10-26] MEDS: Z GUARD REMEDY 2 OZ OINT TP PRN (09:23)
[2018-10-26] MEDS: Z GUARD REMEDY 2 OZ OINT TP SCH (09:24)
[2018-10-26] MEDS: MEROPENEM 1 G in IV NS 0.9% 100 ML IV SCH ×2 (10:03→20:33)
[2018-10-26 10:12] LABS: ABG BASE EXCESS -1.2 mmol/L; ABG OXYGEN SATURATION 96.3 % (92.0-98.5); ABG PCO2 52.2 mmHg (35.0-45.0); ABG PH 7.304 (7.350-7.450); ABG PO2 100.4 mmHg (75.0-100.0); AaDO2 66.7 mmHg; O2Hb 94.4 % (94.0-97.0); SITE, ABG Right Radial; VENT MODE, BG NASAL CANNULA
--- NOTE | 2018-10-26 10:19 | NUR ---
RT ABG RESULTS GIVEN TO DR. ESCOBAR. PT O2 DECREASED TO 1.5L PER DR. ESCOBAR REQUEST. LOBO REIS NOTIFIED AND AWARE.
--- NOTE | 2018-10-26 10:20 | NUR ---
RN NOTE 1020: ABG resulted, aware, with order to place patient to 1.5LPM O2 via NC and noc Bipap. 1050: ST at bedside.
[2018-10-26] MEDS ORDERED: LINEZOLID 600 MG TABLET PO SCH (10:30)
[2018-10-26] MEDS: PANTOPRAZOLE 40 MG VIAL IV SCH (12:11)
[2018-10-26] MEDS: LINEZOLID RTU BAG 600 MG in PREMIX 1 EA IV SCH ×2 (12:11→22:53)
[2018-10-26] MEDS: NOREPINEPHRINE 16 MG in IV D5W 500 ML IV PRN (13:31)
[2018-10-26] MEDS: ACETAMINOPHEN 650 MG/20.3 ML UDC NG PRN (18:49)
--- NOTE | 2018-10-26 18:53 | NUR ---
RN NOTE Levo @ 8mcg. Left fem TLC intact. Daughter at bedside updated re: patient's condition. On 2LPM od O2 via NC. Kept clean, warm and dry. Needs attended. Kept call light at reach. Iso prec maintained and observed. Will endorse to next shift.
--- NOTE | 2018-10-26 20:45 | NUR ---
ICU/FIELD PLACEMENT DIRECTOR PT COMPLAINED OF PAIN GAVE OXYCODONE 1 TAB FOR THIS. PAIN RATED 10/10 TO BACK AND RIGHT KNEE. PT WAS TURNED AND REPOSITIONED FOR COMFORT AND CARE.
--- NOTE | 2018-10-26 21:10 | NUR ---
ICU/ASSOCIATE TECHNICIAN PT'S BLOOD PRESSURE FELL TO 88/53 AFTER A FEW TIMES BEING RECYCLED. CHARGE NURSE NOTIFIED ABOUT THIS. THEN THE LEVO WAS INCREASED BY CHARGE NURSE TO 12MCG FROM 10. WILL CONTINUE TO MONITOR THIS PT AND HER BLOOD PRESSURE.
--- NOTE | 2018-10-26 22:14 | NUR ---
ICU/VICE PRESIDENT & GENERAL MANAGER [employer] [place] PT'S BLOOD PRESSURE FELL TO 84/58 AFTER A FEW TIMES OF BEING RECYCLED. CHARGE NURSE NOTIFIED ABOUT THIS. THEN THE LEVO WAS INCREASED BY CHARGE NURSE TO 14MCG FROM 12MCG. WILL CONTINUE TO MONITOR THIS PT AND HER BLOOD PRESSURE.
[2018-10-27] VITALS (103 sets, daily range): BP systolic 67–116; BP diastolic 33–83
[2018-10-27] MEDS: ALBUTEROL FS 2.5 MG/0.5 ML VIAL.NEB NEB SCH ×6 (00:13→19:49)
[2018-10-27] MEDS: IPRATROPIUM NEB FS 0.5 MG/2.5 ML AMPUL.NEB NEB SCH ×6 (00:13→19:49)
[2018-10-27] MEDS: oxyCODONE IR immediate release 5 MG PO PRN ×4 (00:23→23:26)
[2018-10-27] MEDS: INSULIN REGULAR, HUMAN 100 UNIT/ML 3 ML VIAL SQ PRN ×2 (00:24→06:21)
--- NOTE | 2018-10-27 00:30 | NUR ---
ICU/CROWN ASSEMBLY MACHINE OPERATOR PT PLACED ON PM BIPAP, PT HAD REFUSED IT UNTIL NOW. WILL MONITOR THIS PT AND HER SATURATION. PT WAS TURNED AND REPOSITIONED FOR COMFORT AND CARE, CALL LIGHT WITHIN REACH.
--- NOTE | 2018-10-27 00:47 | NUR ---
ICU/ACCOUNTING ASSOCIATE PT COMPLAINED OF PAIN GAVE OXYCODONE 1 TAB FOR THIS. PAIN RATED 10/10 TO BACK AND RIGHT KNEE. PT WAS TURNED AND REPOSITIONED FOR COMFORT AND CARE. WILL CONTINUE TO MONITOR THIS PT'S PAIN
--- NOTE | 2018-10-27 01:30 | NUR ---
ICU/FOOD PHOTOGRAPHER PT TOOK OFF BIPAP, REFUSED TO PUT BACK ON. PT PLACED BACK ON N/C. WILL CONTINUE TO MONITOR THIS PT AND HER SATURATION.
[2018-10-27] MEDS: IV NS 0.9% 1,000 ML IV PRN (02:44)
[2018-10-27 04:30] LABS: BASOPHILS % (AUTO) 0.2 % (0.0-2.0); EOSINOPHILS % (AUTO) 1.4 % (0.0-6.0); HEMATOCRIT 26 % (33-45); HEMOGLOBIN 8.9 g/dL (11.5-14.8); LYMPHOCYTES # (AUTO) 0.6 /CMM (0.8-4.8); MEAN CORPUSCULAR HGB CONC 34 g/dl (31.0-36.0); MEAN CORPUSCULAR VOLUME 97 fL (82-100); MONOCYTES # (AUTO) 0.7 /CMM (0.1-1.30); MONOCYTES % (AUTO) 9.3 % (2.0-12.0); NEUTROPHILS # (AUTO) 6.5 /CMM (1.8-8.9); NEUTROPHILS % (AUTO) 82.1 % (43.0-81.0); PLATELET COUNT (AUTO) 59 /CMM (150-450); RED BLOOD CELL COUNT(AUTO) 2.73 MIL/uL (4.0-5.2); WHITE BLOOD COUNT (AUTO) 7.9 K/uL (4.3-11.0)
--- NOTE | 2018-10-27 04:40 | NUR ---
ICU/FOOD SAFETY COORDINATOR PT COMPLAINED OF PAIN GAVE OXYCODONE 1 TAB FOR THIS. PAIN RATED 10/10 TO BACK AND RIGHT KNEE. PT WAS TURNED AND REPOSITIONED FOR COMFORT AND CARE. WILL CONTINUE TO MONITOR PT'S PAIN LEVEL.
[2018-10-27 04:41] LABS: CALCIUM, SERUM 7.7 mg/dL (8.5-10.1); CREATININE 1.1 mg/dL (0.6-1.3); POTASSIUM 4.4 mmol/L (3.5-5.1)
[2018-10-27] MEDS: BLOOD SUGAR DIAGNOSTIC 1 EACH STRIP IN SCH ×3 (06:20→17:33)
--- NOTE | 2018-10-27 07:20 | NUR ---
RN INITIAL NOTES RECEIVED PT AWAKE, A/0X1-2, YORUBA SPEAKING. ON 02 VIA NC AT 1.5LPM. HOB ELEVATED. NO RESPIRATORY DISTRESS NOTED. NO SOB NOTED. LEFT FEMORAL TLC IN PLACE. IVF INFUSING. ON LEVO AT 16MCG/MIN. WILL KEEP SBP>90MMHG. FC IN PLACE. BLE ELEVATED. WILL MONITOR.
[2018-10-27] MEDS: MEROPENEM 1 G in IV NS 0.9% 100 ML IV SCH ×2 (08:17→21:45)
[2018-10-27] MEDS: Z GUARD REMEDY 2 OZ OINT TP SCH (08:18)
[2018-10-27] MEDS: NOREPINEPHRINE 16 MG in IV D5W 500 ML IV PRN ×2 (08:19→18:18)
[2018-10-27 08:53] LABS: ABG BASE EXCESS -1.1 mmol/L; ABG OXYGEN SATURATION 96.3 % (92.0-98.5); ABG PCO2 61.3 mmHg (35.0-45.0); ABG PH 7.254 (7.350-7.450); ABG PO2 100.3 mmHg (75.0-100.0); AaDO2 41.6 mmHg; COHb 0.8 % (0.5-1.5); MetHb 0.6 % (0.0-1.5); SITE, ABG Right Radial; VENT MODE, BG NASAL CANNULA
[2018-10-27] MEDS: LACTULOSE 10 G/15 ML UDC (PYXIS) PO SCH ×3 (09:00→16:12)
[2018-10-27] MEDS: RIFAXIMIN 550 MG TABLET PO SCH ×2 (09:00→16:12)
[2018-10-27] MEDS ORDERED: FUROSEMIDE 20 MG/2 ML VIAL IV ONE ×2 (09:30→11:30)
[2018-10-27] MEDS: LINEZOLID RTU BAG 600 MG in PREMIX 1 EA IV SCH ×2 (10:19→23:26)
--- NOTE | 2018-10-27 10:20 | NUR ---
RN NOTES 09 SEEN AND EXAMINED BY DR HAIR. PT ON VIA NC. HOB ELEVATED. PT BECOMING LETHARGIC, ABG DONE. PT ON LEVO AT 16MCG/MIN. MD AWARE OF LAB VALUES AND CXR RESULT. KEPT HOB ELEVATED. MD ORDERED MAY REMOVE RIGHT KNEE DEVYN ALTERNATELY. WILL MONITOR 09 ABG RESULT RELAYED TO DR MALIK. PT PLACED ON BIPAP. KEPT HOB ELEVATED. WILL CLOSELY MONITOR 0945 SEEN AND EXAMINED BY DR MALIK. PT ON BIPAP. KEPT HOB ELEVATED. WILL DO ABG IN 1HR. ORDERED TO DC IVF AND GIVE ADDITIONAL LASIX 20MG IVP. WILL NOTIFY MD FOR ABG RESULT. WILL CONTINUE TO MONITOR
[2018-10-27 11:48] LABS: ABG BASE EXCESS -1.7 mmol/L; ABG PCO2 48.2 mmHg (35.0-45.0); ABG PH 7.323 (7.350-7.450); ABG PO2 92.4 mmHg (75.0-100.0); AaDO2 64.9 mmHg; COHb 0.7 % (0.5-1.5); MetHb 0.5 % (0.0-1.5); O2Hb 94.8 % (94.0-97.0); SITE, ABG Right Radial; VENT MODE, BG BIPAP 20/10 14 30%
[2018-10-27] MEDS ORDERED: PANTOPRAZOLE 40 MG VIAL IV SCH (13:00)
--- NOTE | 2018-10-27 15:00 | NUR ---
RN NOTES 1147 ABG RESULT RELAYED TO DR MALIK. RESULT IMPROVED. PT A/OX1-2, REMAINS ON BIPAP. HOB ELEVATED. VS WNL. WILL CLOSELY MONITOR 1300 PT PLACED BACK ON 02 VIA NC. RR 18, 02 SAT 100%. KEPT HOB ELEVATED. NO SIGNS OF RESPIRATORY DISTRESS NOTED. PT AWAKE, A/OX1-2. ABLE TO FOLLOW COMMANDS. ABLE TO ANSWER SIMPLE QUESTIONS. WILL CLOSELY MONITOR. 1500 PT TOLERATING 02 VIA NC. NO RESPIRATORY DISTRESS NOTED. VS WNL. RR 17, 02 SAT 100%. WILL KEEP ON NC. WILL CLOSELY MONITOR
--- NOTE | 2018-10-27 18:54 | NUR ---
RN CLOSING NOTES PT REMAINS A/OX1-2, ON 02 VIA NC AT 3LPM. NO RESPIRATORY DISTRESS NOTED. NO SOB NOTED. HOB ELEVATED. REMAINS ON LEVO, KEPT SBP>90MMHG. FC IN PLACE. TX PROVIDED ORDERED. KEPT CLEAN AND DRY. BLE ELEVATED. RIGHT KNEE DEVYN REMOVED ALTERNATELY. NO SIGNS OF BLEEDING NOTED. KEPT COMFORTABLE. WILL ENDORSE FOR CONTINUITY OF CARE.
[2018-10-28] VITALS (78 sets, daily range): BP systolic 80–156; BP diastolic 43–113
[2018-10-28] MEDS: ALBUTEROL FS 2.5 MG/0.5 ML VIAL.NEB NEB SCH ×7 (00:01→20:00)
[2018-10-28] MEDS: IPRATROPIUM NEB FS 0.5 MG/2.5 ML AMPUL.NEB NEB SCH ×6 (00:01→20:00)
[2018-10-28 04:38] LABS: BASOPHILS % (AUTO) 0.2 % (0.0-2.0); EOSINOPHILS % (AUTO) 2.8 % (0.0-6.0); HEMATOCRIT 25 % (33-45); HEMOGLOBIN 8.3 g/dL (11.5-14.8); LYMPHOCYTES # (AUTO) 0.5 /CMM (0.8-4.8); LYMPHOCYTES % (AUTO) 7.7 % (20.0-44.0); MEAN CORPUSCULAR HGB CONC 34 g/dl (31.0-36.0); MEAN CORPUSCULAR VOLUME 96 fL (82-100); MONOCYTES # (AUTO) 0.6 /CMM (0.1-1.30); MONOCYTES % (AUTO) 10.6 % (2.0-12.0); NEUTROPHILS # (AUTO) 4.7 /CMM (1.8-8.9); NEUTROPHILS % (AUTO) 78.7 % (43.0-81.0); PLATELET COUNT (AUTO) 52 /CMM (150-450); RED BLOOD CELL COUNT(AUTO) 2.59 MIL/uL (4.0-5.2); WHITE BLOOD COUNT (AUTO) 5.9 K/uL (4.3-11.0)
[2018-10-28 04:46] LABS: CALCIUM, SERUM 8.1 mg/dL (8.5-10.1); CREATININE 1.1 mg/dL (0.6-1.3); POTASSIUM 3.9 mmol/L (3.5-5.1)
[2018-10-28] MEDS: BLOOD SUGAR DIAGNOSTIC 1 EACH STRIP IN SCH ×4 (05:39→18:39)
[2018-10-28 05:50] LABS: EOSINOPHILS % (MANUAL) 3 % (0-4); LYMPHOCYTES % (MANUAL) 3 % (16-48); MONOCYTES % (MANUAL) 5 % (0-11.0); NEUTROPHILS % (MANUAL) 89 (42-76)
--- NOTE | 2018-10-28 07:30 | NUR ---
INITIAL RECEIVED PT AWAKE, A/0X1-2, CUBAN SPEAKING. ON BIBAP. HOB ELEVATED. NO RESPIRATORY DISTRESS NOTED. NO SOB NOTED. LEFT FEMORAL TLC IN PLACE. IVF INFUSING. ON LEVO AT 16MCG/MIN. WILL KEEP SBP>90MMHG. FC IN PLACE. BLE ELEVATED. WILL MONITOR.
[2018-10-28] MEDS: NOREPINEPHRINE 16 MG in IV D5W 500 ML IV PRN (08:39)
[2018-10-28] MEDS: LACTULOSE 10 G/15 ML UDC (PYXIS) PO SCH ×3 (08:54→17:56)
[2018-10-28] MEDS: RIFAXIMIN 550 MG TABLET PO SCH ×2 (08:54→17:57)
[2018-10-28] MEDS: MEROPENEM 1 G in IV NS 0.9% 100 ML IV SCH ×2 (08:55→20:36)
[2018-10-28] MEDS: Z GUARD REMEDY 2 OZ OINT TP SCH (08:56)
[2018-10-28] MEDS ORDERED: PANTOPRAZOLE 40 MG/PACK PACK GT SCH (09:00)
[2018-10-28 09:15] LABS: ABG OXYGEN SATURATION 94.9 % (92.0-98.5); ABG PCO2 51.3 mmHg (35.0-45.0); ABG PH 7.341 (7.350-7.450); ABG PO2 82.6 mmHg (75.0-100.0); AaDO2 56.5 mmHg; COHb 1.1 % (0.5-1.5); MetHb 0.5 % (0.0-1.5); O2Hb 93.4 % (94.0-97.0); SITE, ABG Right Radial; VENT MODE, BG NASAL CANNULA
[2018-10-28] MEDS: oxyCODONE IR immediate release 5 MG PO PRN (09:29)
[2018-10-28] MEDS ORDERED: FUROSEMIDE 40 MG/4 ML VIAL IV SCH (11:00)
[2018-10-28] MEDS: DAPTOMYCIN 600 MG in IV NS 0.9% 50 ML IV SCH (13:22)
[2018-10-28] MEDS: INSULIN REGULAR, HUMAN 100 UNIT/ML 3 ML VIAL SQ PRN ×2 (13:24→18:40)
[2018-10-28] MEDS: OSELTAMIVIR PHOSPHATE 75 MG CAPSULE PO SCH ×2 (13:27→17:57)
--- NOTE | 2018-10-28 13:46 | NUR ---
NO INSULIN GIVEN PT ONLY EATING 10% OF MEAL BLOOD CULTURES DRAWN
[2018-10-28] MEDS: PANTOPRAZOLE 40 MG/PACK PACK GT SCH (14:47)
--- NOTE | 2018-10-28 15:28 | NUR ---
RT PT PLACED BACK ON BiPAP DUE TO INCREASED WOB. PT PLACED BACK ON PREVIOUS SETTINGS. RN AND CHARGE NURSE NOTIFIED AND AWARE. Addendum: 10/28/18 at 1539 by DAPHNIE DONG RT Amended: Links added.
--- NOTE | 2018-10-28 17:53 | NUR ---
PT HAD THORACENTESIS 1000ML REMOVED SAMPLE TAKEN TO LAB S/P X-RAY DONE
--- NOTE | 2018-10-28 18:56 | NUR ---
CLOSING PT REMAINS A/OX1-2, ON BIPAP. NO RESPIRATORY DISTRESS NOTED. NO SOB NOTED. HOB ELEVATED. REMAINS ON LEVO, KEPT SBP>90MMHG. FC IN PLACE. TX PROVIDED ORDERED. KEPT CLEAN AND DRY. BLE ELEVATED. RIGHT KNEE DEVYN REMOVED ALTERNATELY. NO SIGNS OF BLEEDING NOTED. KEPT COMFORTABLE. WILL ENDORSE TO PM SHIFT FOR CONTINUITY OF CARE.
--- NOTE | 2018-10-28 19:15 | NUR ---
STUD BEEF CATTLE FARMER. INITIAL ASSESSMENT. RECEIVED THE PT REST ON THE BED. AWAKE, ALERT, LETHARGIC. BIPAP ON. SETTINGS 20/10. RATE IS 14,FIO2 30%. SAT 98%. PRODUCT PLANNER SHOWING S TACH. IV LT FEMORAL TRIPLE LUMEN. LEVOPHED 16MCG/MIN, FLEXA SEAL INTACT. FC PATENT. HOB ELEVATED. WILL CONTINUE TO MONITOR VITALS.
[2018-10-29] VITALS (90 sets, daily range): BP systolic 86–120; BP diastolic 42–73
[2018-10-29] MEDS: IPRATROPIUM NEB FS 0.5 MG/2.5 ML AMPUL.NEB NEB SCH ×7 (00:08→23:13)
[2018-10-29] MEDS: ALBUTEROL FS 2.5 MG/0.5 ML VIAL.NEB NEB SCH ×7 (00:08→23:13)
[2018-10-29] MEDS: BLOOD SUGAR DIAGNOSTIC 1 EACH STRIP IN SCH ×4 (00:12→17:38)
[2018-10-29] MEDS: NOREPINEPHRINE 16 MG in IV D5W 500 ML IV PRN ×2 (00:13→17:32)
--- NOTE | 2018-10-29 04:38 | NUR ---
REAL ESTATE PROFESSOR. AM CARE, ORAL CARE, BED BATH GIVEN. LINEN CHANGED, REMAINING SAME BIPAP SETTING TOLERATED WELL. SAT 98%. NO ACUTE DISTRESS NOTED. OUTSOLE CUTTER MACHINE SHOWING S TACH, IV LT FEMORAL TRIPLE LUMEN LEVOPHED 16MCG/MIN. HOB ELEVATED. FLEXA SEAL INTACT. WATERY STOOL DRAINING. FC PATENT. URINE DRAINING. HOB ELEVATED. AFEBRILE. WILL CONTINUE TO MONITOR VITALS.
[2018-10-29 04:56] LABS: BASOPHILS % (AUTO) 0.6 % (0.0-2.0); EOSINOPHILS % (AUTO) 3.1 % (0.0-6.0); HEMATOCRIT 24 % (33-45); HEMOGLOBIN 7.9 g/dL (11.5-14.8); LYMPHOCYTES # (AUTO) 0.5 /CMM (0.8-4.8); LYMPHOCYTES % (AUTO) 10.3 % (20.0-44.0); MEAN CORPUSCULAR HGB CONC 34 g/dl (31.0-36.0); MEAN CORPUSCULAR VOLUME 96 fL (82-100); MONOCYTES # (AUTO) 0.5 /CMM (0.1-1.30); MONOCYTES % (AUTO) 10.2 % (2.0-12.0); NEUTROPHILS % (AUTO) 75.8 % (43.0-81.0); RED BLOOD CELL COUNT(AUTO) 2.46 MIL/uL (4.0-5.2); WHITE BLOOD COUNT (AUTO) 5.3 K/uL (4.3-11.0)
[2018-10-29 05:06] LABS: CALCIUM, SERUM 8.4 mg/dL (8.5-10.1); POTASSIUM 3.5 mmol/L (3.5-5.1)
[2018-10-29 05:17] LABS: PLATELET COUNT (AUTO) 46 /CMM (150-450)
[2018-10-29 05:55] LABS: EOSINOPHILS % (MANUAL) 3 % (0-4); LYMPHOCYTES % (MANUAL) 10 % (16-48); NEUTROPHILS % (MANUAL) 80 (42-76)
[2018-10-29 05:56] LABS: MONOCYTES % (MANUAL) 7 % (0-11.0)
--- NOTE | 2018-10-29 06:50 | NUR ---
LAB SUPPORT SERVICE TECH. BIPAP OFF AT 0600. OXYGEN 4L VIA NASAL CANNULA. SAT 99%. NO ACUTE DISTRESS NOTED. WILL CONTINUE TO MONITOR,
--- NOTE | 2018-10-29 07:10 | NUR ---
RN INITIAL NOTES: Rec'd pt awake on bed, in pain, A/O x 2, Burkinan speaking. On NC at 1-2lpm, no SOB. On telemonitor, ST 110's. Has L femoral TLC in place w/ Levo Drip x 15 mcg infusing well, will keep SBP >90. Has FC draining to BSB w/ tea colored UOP. Has flexiseal. Safety precaution in place w/ bed in lowest & locked pos. Call light placed w/in reach. Will cont to monitor & attend pt needs.
[2018-10-29] MEDS: oxyCODONE IR immediate release 5 MG PO PRN ×4 (07:32→22:43)
[2018-10-29] MEDS: MEROPENEM 1 G in IV NS 0.9% 100 ML IV SCH ×2 (08:29→20:26)
[2018-10-29] MEDS: LACTULOSE 10 G/15 ML UDC (PYXIS) PO SCH ×3 (08:30→16:20)
[2018-10-29] MEDS: OSELTAMIVIR PHOSPHATE 75 MG CAPSULE PO SCH ×2 (08:30→16:20)
[2018-10-29] MEDS: RIFAXIMIN 550 MG TABLET PO SCH ×2 (08:30→16:20)
[2018-10-29] MEDS: Z GUARD REMEDY 2 OZ OINT TP SCH (08:30)
[2018-10-29] MEDS: PANTOPRAZOLE 40 MG/PACK PACK GT SCH (08:30)
[2018-10-29 08:58] LABS: ABG BASE EXCESS -0.6 mmol/L; ABG OXYGEN SATURATION 94.5 % (92.0-98.5); ABG PCO2 41.7 mmHg (35.0-45.0); ABG PH 7.385 (7.350-7.450); ABG PO2 81.7 mmHg (75.0-100.0); AaDO2 39.8 mmHg; COHb 0.8 % (0.5-1.5); MetHb 0.9 % (0.0-1.5); O2Hb 92.9 % (94.0-97.0); SITE, ABG Right Brachial; VENT MODE, BG NASAL CANNULA
[2018-10-29] MEDS ORDERED: FUROSEMIDE 40 MG/4 ML VIAL IV SCH (09:00)
--- NOTE | 2018-10-29 10:19 | NUR ---
Pt still c/o severe pain despite of Oxycodone IR 5 mg PO given earlier. Dr. Gonsalez made aware w/ orders to change the dose to 10 mg.
--- NOTE | 2018-10-29 11:13 | NUR ---
Spoke w/ Preston from lab re: Dr. Gonsalez's lab orders (thoracentesis specimen), per Preston will do the tests from previous pleural fluid specimen.
[2018-10-29] MEDS: INSULIN REGULAR, HUMAN 100 UNIT/ML 3 ML VIAL SQ PRN ×2 (11:40→17:39)
[2018-10-29] MEDS: DAPTOMYCIN 600 MG in IV NS 0.9% 50 ML IV SCH (12:48)
[2018-10-29] MEDS: FUROSEMIDE 40 MG/4 ML VIAL IV SCH (16:20)
--- NOTE | 2018-10-29 18:22 | NUR ---
RN CLOSING NOTES: No significant changes noted w/in shift. Pt tolerated NC at 1-2lpm, no SOB. On telemonitor, still ST. L femoral TLC kept in place w/ Levo Drip x 15 mcg infusing well, kept SBP >90. FC draining to BSB. Flexiseal kept patent & intact. Safety precaution in place at all times w/ bed in lowest & locked pos. Call light placed w/in reach. Will endorse to PM RN for JURGEN.
--- NOTE | 2018-10-29 19:30 | NUR ---
MELON PACKER INITIAL SHIFT NOTES RECEIVED PATIENT IN BED, AWAKE, ALERT AND ORIENTED X2, IRISH SPEAKING. PATIENT ON O2 VIA NC @ 2LPM, TOLERATING WELL, FREE FROM ANY S/S OF RESPIRATORY DISTRESS. HR 110, ST, NO FEVER AT THIS TIME. LEFT FEMORAL TLC PATENT AND INTACT, ALL PORTS FLUSHING WELL. ILMON PATENT AND INTACT, DRAINING ALEXIS COLORED URINE. RECTAL TUBE PATENT AND INTACT, DRAINING LIQUID BROWN/GREEN STOOL. CALL LIGHT LEFT WITHIN EASY REACH, BED IN LOWEST AND LOCKED POSITION. WILL CONTINUE TO CLOSELY MONITOR
[2018-10-30] VITALS (62 sets, daily range): BP systolic 86–127; BP diastolic 50–81
[2018-10-30] MEDS: BLOOD SUGAR DIAGNOSTIC 1 EACH STRIP IN SCH ×4 (00:31→19:22)
[2018-10-30] MEDS: INSULIN REGULAR, HUMAN 100 UNIT/ML 3 ML VIAL SQ PRN ×3 (00:33→19:23)
[2018-10-30] MEDS: IPRATROPIUM NEB FS 0.5 MG/2.5 ML AMPUL.NEB NEB SCH ×6 (03:30→22:58)
[2018-10-30] MEDS: ALBUTEROL FS 2.5 MG/0.5 ML VIAL.NEB NEB SCH ×6 (03:30→22:58)
[2018-10-30] MEDS: oxyCODONE IR immediate release 5 MG PO PRN ×2 (03:40→19:45)
[2018-10-30 05:20] LABS: BASOPHILS % (AUTO) 0.8 % (0.0-2.0); EOSINOPHILS % (AUTO) 5.3 % (0.0-6.0); HEMATOCRIT 24 % (33-45); HEMOGLOBIN 7.9 g/dL (11.5-14.8); LYMPHOCYTES # (AUTO) 0.7 /CMM (0.8-4.8); LYMPHOCYTES % (AUTO) 12.7 % (20.0-44.0); MEAN CORPUSCULAR HGB CONC 33 g/dl (31.0-36.0); MEAN CORPUSCULAR VOLUME 97 fL (82-100); MONOCYTES # (AUTO) 0.5 /CMM (0.1-1.30); MONOCYTES % (AUTO) 10.2 % (2.0-12.0); NEUTROPHILS # (AUTO) 3.7 /CMM (1.8-8.9); RED BLOOD CELL COUNT(AUTO) 2.48 MIL/uL (4.0-5.2); WHITE BLOOD COUNT (AUTO) 5.2 K/uL (4.3-11.0)
[2018-10-30 05:41] LABS: PLATELET COUNT (AUTO) 46 /CMM (150-450)
[2018-10-30 05:45] LABS: CALCIUM, SERUM 8.5 mg/dL (8.5-10.1); POTASSIUM 3.5 mmol/L (3.5-5.1)
[2018-10-30 05:52] LABS: EOSINOPHILS % (MANUAL) 5 % (0-4); LYMPHOCYTES % (MANUAL) 10 % (16-48); MONOCYTES % (MANUAL) 7 % (0-11.0); NEUTROPHILS % (MANUAL) 78 (42-76)
--- NOTE | 2018-10-30 07:00 | NUR ---
WORKERS' COMPENSATION CLAIMS EXAMINER CLOSING NOTES PATIENT RESTING COMFORTABLY IN BED, DENIES PAIN AT THIS TIME, PAIN MEDICATION REGIMEN EFFECTIVE. WILL ENDORSE THE PATIENT TO THE AM SHIFT NURSE FOR CONTINUITY OF CARE
[2018-10-30] MEDS: RIFAXIMIN 550 MG TABLET PO SCH ×2 (08:32→17:37)
[2018-10-30] MEDS: LACTULOSE 10 G/15 ML UDC (PYXIS) PO SCH ×3 (08:32→17:36)
[2018-10-30] MEDS: OSELTAMIVIR PHOSPHATE 75 MG CAPSULE PO SCH ×2 (08:32→17:37)
[2018-10-30] MEDS: MEROPENEM 1 G in IV NS 0.9% 100 ML IV SCH ×2 (08:32→20:04)
[2018-10-30] MEDS: PANTOPRAZOLE 40 MG/PACK PACK GT SCH (08:32)
[2018-10-30] MEDS: FUROSEMIDE 40 MG/4 ML VIAL IV SCH ×2 (08:33→17:37)
[2018-10-30] MEDS: NOREPINEPHRINE 16 MG in IV D5W 500 ML IV PRN (11:13)
[2018-10-30] MEDS: DAPTOMYCIN 600 MG in IV NS 0.9% 50 ML IV SCH (13:16)
[2018-10-30] MEDS: GLUCERNA SHAKE 237 ML CAN PO SCH (17:00)
--- NOTE | 2018-10-30 19:30 | NUR ---
WATCH ELECTRICIAN INITIAL SHIFT NOTES RECEIVED PATIENT IN BED, AWAKE, ALERT AND ORIENTED X2, BELARUSIAN SPEAKING, WITH PERIODS OF CONFUSION PER FAMILY MEMBERS. PATIENT ON O2 VIA NC @ 2LPM, TOLERATING WELL, FREE FROM ANY S/S OF RESPIRATORY DISTRESS, BIPAP PRN. HR 112, ST, NO FEVER AT THIS TIME. SUKHDEV PICC PATENT AND INTACT, ALL PORTS FLUSHING WELL. LIMON PATENT AND INTACT, DRAINING ALEXIS COLORED URINE. RECTAL TUBE PATENT AND INTACT, DRAINING LIQUID BROWN/GREEN STOOL. CALL LIGHT LEFT WITHIN EASY REACH, BED IN LOWEST AND LOCKED POSITION. WILL CONTINUE TO CLOSELY MONITOR
[2018-10-30] MEDS: Z GUARD REMEDY 2 OZ OINT TP SCH (20:05)
[2018-10-31] VITALS (82 sets, daily range): BP systolic 78–139; BP diastolic 34–101
[2018-10-31] MEDS: BLOOD SUGAR DIAGNOSTIC 1 EACH STRIP IN SCH ×4 (00:17→17:12)
--- NOTE | 2018-10-31 03:00 | NUR ---
DIGITAL PHOTOGRAPHER NOTES PATIENT WITH C/O 9/10 RIGHT KNEE PAIN. OXY PO ADMINISTERED ORDERED
[2018-10-31] MEDS: oxyCODONE IR immediate release 5 MG PO PRN ×3 (03:04→14:39)
[2018-10-31] MEDS: ALBUTEROL FS 2.5 MG/0.5 ML VIAL.NEB NEB SCH ×6 (04:15→23:36)
[2018-10-31] MEDS: IPRATROPIUM NEB FS 0.5 MG/2.5 ML AMPUL.NEB NEB SCH ×6 (04:15→23:36)
[2018-10-31 05:08] LABS: BASOPHILS % (AUTO) 0.3 % (0.0-2.0); EOSINOPHILS % (AUTO) 5.8 % (0.0-6.0); HEMATOCRIT 25 % (33-45); HEMOGLOBIN 8.4 g/dL (11.5-14.8); LYMPHOCYTES # (AUTO) 0.5 /CMM (0.8-4.8); LYMPHOCYTES % (AUTO) 13.1 % (20.0-44.0); MEAN CORPUSCULAR HGB CONC 33 g/dl (31.0-36.0); MEAN CORPUSCULAR VOLUME 95 fL (82-100); MONOCYTES # (AUTO) 0.4 /CMM (0.1-1.30); MONOCYTES % (AUTO) 10.7 % (2.0-12.0); NEUTROPHILS # (AUTO) 2.7 /CMM (1.8-8.9); NEUTROPHILS % (AUTO) 70.1 % (43.0-81.0); RED BLOOD CELL COUNT(AUTO) 2.66 MIL/uL (4.0-5.2); WHITE BLOOD COUNT (AUTO) 3.8 K/uL (4.3-11.0)
[2018-10-31 05:18] LABS: CALCIUM, SERUM 8.8 mg/dL (8.5-10.1); CREATININE 0.8 mg/dL (0.6-1.3); POTASSIUM 3.4 mmol/L (3.5-5.1)
[2018-10-31 05:22] LABS: PLATELET COUNT (AUTO) 29 /CMM (150-450)
[2018-10-31 05:46] LABS: EOSINOPHILS % (MANUAL) 5 % (0-4); LYMPHOCYTES % (MANUAL) 10 % (16-48); MONOCYTES % (MANUAL) 8 % (0-11.0); NEUTROPHILS % (MANUAL) 77 (42-76)
[2018-10-31] MEDS: INSULIN REGULAR, HUMAN 100 UNIT/ML 3 ML VIAL SQ PRN ×3 (05:49→17:12)
--- NOTE | 2018-10-31 06:30 | NUR ---
DIRECTOR OF EXHIBIT DEVELOPMENT NOTES BP 135/86. LEVOPHED DRIP TITRATED DOWN TO 6 MCG/MIN. WILL CONTINUE CLOSE MONITORING
--- NOTE | 2018-10-31 07:12 | NUR ---
RN INITIAL NOTES: Rec'd pt awake on bed, A/O x 2, Ukrainian speaking. On NC at 2lpm, no SOB. On telemonitor, Has SUKHDEV PICC line w/ Levo Drip x 6 mcg infusing well, will keep SBP >90. Has FC draining to BSB w/ tea colored UOP. Has flexiseal. Safety precaution in place w/ bed in lowest & locked pos. Call light placed w/in reach. Will cont to monitor & attend pt needs.
[2018-10-31] MEDS: GLUCERNA SHAKE 237 ML CAN PO SCH ×3 (08:27→16:37)
[2018-10-31] MEDS: RIFAXIMIN 550 MG TABLET PO SCH ×2 (08:28→16:37)
[2018-10-31] MEDS: LACTULOSE 10 G/15 ML UDC (PYXIS) PO SCH ×3 (08:28→16:37)
[2018-10-31] MEDS: PANTOPRAZOLE 40 MG/PACK PACK GT SCH (08:28)
[2018-10-31] MEDS: MEROPENEM 1 G in IV NS 0.9% 100 ML IV SCH ×2 (08:28→18:20)
[2018-10-31] MEDS: FUROSEMIDE 40 MG/4 ML VIAL IV SCH ×2 (08:28→16:37)
[2018-10-31] MEDS: Z GUARD REMEDY 2 OZ OINT TP SCH (08:29)
[2018-10-31] MEDS: OSELTAMIVIR PHOSPHATE 75 MG CAPSULE PO SCH ×2 (08:29→16:37)
--- NOTE | 2018-10-31 09:00 | NUR ---
Pt seen & examined by Dr. Gonsalez. Made aware of platelet 29 w/ NNO.
--- NOTE | 2018-10-31 09:45 | NUR ---
Pt seen & examined by Dr. Sepulveda.
[2018-10-31] MEDS ORDERED: POTASSIUM CHLORIDE 20 MEQ TAB.PRT.SR PO SCH (11:30)
[2018-10-31] MEDS: DAPTOMYCIN 600 MG in IV NS 0.9% 50 ML IV SCH (12:43)
--- NOTE | 2018-10-31 15:29 | NUR ---
Called Lab, spoke w/ Jes, followed up final ID sensitivities re: blood culture of the pt. Per Jes, she will address this.
--- NOTE | 2018-10-31 15:46 | NUR ---
Pt has persistent dry cough. Dr. Sepulveda made aware w/ orders to start on Robitussin 10ml q6H PRN for cough.
[2018-10-31] MEDS ORDERED: GUAIFENESIN/CODEINE 10 ML UDC PO PRN (16:00)
--- NOTE | 2018-10-31 18:56 | NUR ---
RN CLOSING NOTES: No significant changes noted w/in shift. Pt tolerated NC at 2lpm, no SOB. On telemonitor, still ST. SUKHDEV PICC line kept patent & intact. FC draining to BSB. Flexiseal kept patent & intact. Safety precaution in place at all times w/ bed in lowest & locked pos. Call light placed w/in reach. Will endorse to PM RN for JURGEN.
[2018-10-31] MEDS: ACETAMINOPHEN 650 MG/20.3 ML UDC NG PRN (23:55)
[2018-11-01] VITALS (91 sets, daily range): BP systolic 75–127; BP diastolic 28–94
[2018-11-01] MEDS: BLOOD SUGAR DIAGNOSTIC 1 EACH STRIP IN SCH ×4 (00:03→17:44)
[2018-11-01] MEDS: NOREPINEPHRINE 16 MG in IV D5W 500 ML IV PRN (01:15)
[2018-11-01] MEDS: MEROPENEM 1 G in IV NS 0.9% 100 ML IV SCH ×3 (02:01→17:31)
[2018-11-01] MEDS: oxyCODONE IR immediate release 5 MG PO PRN (02:51)
[2018-11-01] MEDS: ALBUTEROL FS 2.5 MG/0.5 ML VIAL.NEB NEB SCH ×6 (03:31→22:44)
[2018-11-01] MEDS: IPRATROPIUM NEB FS 0.5 MG/2.5 ML AMPUL.NEB NEB SCH ×6 (03:31→22:44)
[2018-11-01 05:08] LABS: BASOPHILS % (AUTO) 0.7 % (0.0-2.0); CALCIUM, SERUM 9.1 mg/dL (8.5-10.1); EOSINOPHILS % (AUTO) 7.8 % (0.0-6.0); HEMATOCRIT 24 % (33-45); HEMOGLOBIN 7.8 g/dL (11.5-14.8); LYMPHOCYTES # (AUTO) 0.4 /CMM (0.8-4.8); LYMPHOCYTES % (AUTO) 13.6 % (20.0-44.0); MEAN CORPUSCULAR HGB CONC 33 g/dl (31.0-36.0); MEAN CORPUSCULAR VOLUME 96 fL (82-100); MONOCYTES # (AUTO) 0.4 /CMM (0.1-1.30); MONOCYTES % (AUTO) 11.5 % (2.0-12.0); NEUTROPHILS # (AUTO) 2.2 /CMM (1.8-8.9); NEUTROPHILS % (AUTO) 66.4 % (43.0-81.0); POTASSIUM 3.5 mmol/L (3.5-5.1); RED BLOOD CELL COUNT(AUTO) 2.46 MIL/uL (4.0-5.2); WHITE BLOOD COUNT (AUTO) 3.3 K/uL (4.3-11.0)
[2018-11-01 05:19] LABS: PLATELET COUNT (AUTO) 23 /CMM (150-450)
[2018-11-01 05:52] LABS: BAND % (MANUAL) 1 % (0.0-5.0); EOSINOPHILS % (MANUAL) 9 % (0-4); LYMPHOCYTES % (MANUAL) 16 % (16-48); MONOCYTES % (MANUAL) 7 % (0-11.0); NEUTROPHILS % (MANUAL) 66 (42-76); REACTIVE LYMPHOCYTES 1 % (0-0)
--- NOTE | 2018-11-01 07:00 | NUR ---
MONITORED FREQUENTLY FOR PT SAFETY,REMAINS CONFUSED, WITH PERIODS OF AGITATION, PAIN MED GIVEN WITH LITTLE RELIEF., HAD TO RESTART LEVOPHED GTT AT 0115 THIS AM TO SUPPORT B/P,REMAINS IN ST RESTRAINTS APPLIED FOR HER SAFETY
[2018-11-01] MEDS: GLUCERNA SHAKE 237 ML CAN PO SCH ×3 (08:00→16:47)
[2018-11-01 08:27] LABS: ABG BASE EXCESS 4.3 mmol/L; ABG OXYGEN SATURATION 96.6 % (92.0-98.5); ABG PCO2 65.8 mmHg (35.0-45.0); ABG PO2 105.5 mmHg (75.0-100.0); AaDO2 16.5 mmHg; COHb 0.5 % (0.5-1.5); O2Hb 95.2 % (94.0-97.0); SITE, ABG Right Radial; VENT MODE, BG nasal cannula
--- NOTE | 2018-11-01 08:30 | NUR ---
Pt seen & examined by Dr. Gonsalez w/ orders made & carried out. updated about pt condition last night. agreed to place pt on B soft wrist restraints for safety. Dtr Nicol made aware of the restraints & updated about pt condition. Per to transfuse 1 unit of PRBC.
--- NOTE | 2018-11-01 08:43 | NUR ---
pt. placed back to bipap due to ph 7.30, pco2 65 and patient is lethargic rn notified. parameters below per dr. rangel: ipap 20 epap 5 Addendum: 11/01/18 at 0846 by JORI URIAS RT Amended: Links added.
--- NOTE | 2018-11-01 08:45 | NUR ---
ABG reviewed by Dr. Sepulveda ordered changes w/ BIPAP settings 01/01. RT made aware.
[2018-11-01] MEDS: LACTULOSE 10 G/15 ML UDC (PYXIS) PO SCH ×4 (09:00→16:46)
[2018-11-01] MEDS: OSELTAMIVIR PHOSPHATE 75 MG CAPSULE PO SCH ×3 (09:00→16:46)
[2018-11-01] MEDS: RIFAXIMIN 550 MG TABLET PO SCH ×3 (09:00→16:46)
[2018-11-01] MEDS: PANTOPRAZOLE 40 MG/PACK PACK GT SCH (09:59)
[2018-11-01] MEDS: FUROSEMIDE 40 MG/4 ML VIAL IV SCH ×2 (09:59→16:46)
[2018-11-01] MEDS: Z GUARD REMEDY 2 OZ OINT TP SCH (10:00)
[2018-11-01 11:32] LABS: ABG BASE EXCESS 4.9 mmol/L; ABG OXYGEN SATURATION 95.4 % (92.0-98.5); ABG PCO2 56.5 mmHg (35.0-45.0); ABG PH 7.359 (7.350-7.450); ABG PO2 88.2 mmHg (75.0-100.0); AaDO2 59.3 mmHg; COHb 0.6 % (0.5-1.5); MetHb 1.1 % (0.0-1.5); O2Hb 93.8 % (94.0-97.0); SITE, ABG Right Radial; VENT MODE, BG IPAP 20/ EPAP 5
[2018-11-01] MEDS: INSULIN REGULAR, HUMAN 100 UNIT/ML 3 ML VIAL SQ PRN ×2 (11:35→17:45)
--- NOTE | 2018-11-01 11:54 | NUR ---
PT. IS MORE AWAKE NOW PLACE ON NASAL CANNULA @ 2LPM O2 FLOW VIA NASAL CANNULA ORDER. RN NOTIFIED ON CHANGES. Addendum: 11/01/18 at 1155 by JORI URIAS RT Amended: Links added.
[2018-11-01] MEDS: DAPTOMYCIN 600 MG in IV NS 0.9% 50 ML IV SCH (12:47)
--- NOTE | 2018-11-01 18:34 | NUR ---
RN CLOSING NOTES: Pt resting comfortably while on NC at 2lpm. On telemonitor, still ST. SUKHDEV PICC line kept patent & intact. FC draining to BSB. Flexiseal kept patent & intact. B soft wrist restraints kept on d/t episode of confusion & restlessness (family is aware). BT of 1 unit PRBC done w/o BT reaction noted. Wound care done. Pt turned & repositioned q2H & PRN. Pt fed w/ strict aspiration precaution. Safety precaution in place at all times w/ bed in lowest & locked pos. Call light placed w/in reach. Will endorse to PM RN for JURGEN.
--- NOTE | 2018-11-01 19:23 | NUR ---
RT NOTE: Placed patient on Bipap on noted settings. Bipap is plugged into red outlet w jodie @ [employer]. Alarms are set and audible. Hhn tx given per MD order with no adverse reaction. Will cont to monitor patient. Addendum: 11/01/18 at 2258 by TODD VAZQUEZ RT Amended: Links added.
--- NOTE | 2018-11-01 19:42 | NUR ---
REAL PROPERTY EVALUATOR. INITIAL ASSESSMENT. RECEIVED THE PT REST ON THE BED. AWAKE, ALERT. LETHARGIC, BIPAP ON SETTINGS 20/5,AC 12, FIO2 30%. SAT 98%. TECHNICAL APPLICATIONS SCIENTIST SHOWING NSR. IV RT UPPER ARMPICC LINE TKO RUNNING, EVA SOFT WRIST RESTRAINT CHECKED AND RELEASED. NO INJURY OR REDNESS NOTED. FC PATENT. URINE DRAINING, FLEXA SEAL INTACT. HOB ELEVATED. RT LEG WOUND OPEN. WILL CONTINUE TO MONITOR VITALS.
[2018-11-02] VITALS (39 sets, daily range): BP systolic 78–120; BP diastolic 25–67
[2018-11-02] MEDS: BLOOD SUGAR DIAGNOSTIC 1 EACH STRIP IN SCH ×4 (00:43→17:59)
[2018-11-02] MEDS: MEROPENEM 1 G in IV NS 0.9% 100 ML IV SCH ×2 (01:24→11:53)
[2018-11-02] MEDS: IPRATROPIUM NEB FS 0.5 MG/2.5 ML AMPUL.NEB NEB SCH ×6 (02:59→22:35)
[2018-11-02] MEDS: ALBUTEROL FS 2.5 MG/0.5 ML VIAL.NEB NEB SCH ×6 (02:59→22:35)
--- NOTE | 2018-11-02 03:13 | NUR ---
DIRECTOR SPEECH. AM CARE, ORAL CARE, BED BATH GIVEN. LINEN CHANGED. REMAINING SAME BIPAP SETTING TOLERATED WELL. SAT 99%. NO ACUTE DISTRESS NOTED. MECHANICAL APPLICATIONS ENGINEER SHOWING S TACH. HOB ELEVATED. FC PATENT, URINE DRAINING. FLEXA SEAL INTACT. TURN AND REPOSITION Q2H. AFEBRILE. EVA SOFT WRIST RESTRAINT CHECKED AND RELEASED, NO INJURY OR REDNESS NOTED. WILL CONTINUE TO MONITOR VITALS.
[2018-11-02 05:04] LABS: BASOPHILS % (AUTO) 0.5 % (0.0-2.0); EOSINOPHILS % (AUTO) 5.9 % (0.0-6.0); HEMATOCRIT 22 % (33-45); HEMOGLOBIN 7.5 g/dL (11.5-14.8); LYMPHOCYTES # (AUTO) 0.3 /CMM (0.8-4.8); LYMPHOCYTES % (AUTO) 15.9 % (20.0-44.0); MEAN CORPUSCULAR HGB CONC 34 g/dl (31.0-36.0); MEAN CORPUSCULAR VOLUME 93 fL (82-100); MONOCYTES # (AUTO) 0.2 /CMM (0.1-1.30); MONOCYTES % (AUTO) 10.6 % (2.0-12.0); NEUTROPHILS # (AUTO) 1.4 /CMM (1.8-8.9); NEUTROPHILS % (AUTO) 67.1 % (43.0-81.0); RED BLOOD CELL COUNT(AUTO) 2.36 MIL/uL (4.0-5.2); WHITE BLOOD COUNT (AUTO) 2.1 K/uL (4.3-11.0)
[2018-11-02 05:09] LABS: CALCIUM, SERUM 9.2 mg/dL (8.5-10.1); CREATININE 0.9 mg/dL (0.6-1.3); POTASSIUM 3.4 mmol/L (3.5-5.1)
[2018-11-02 05:17] LABS: PLATELET COUNT (AUTO) 20 /CMM (150-450)
[2018-11-02 05:42] LABS: EOSINOPHILS % (MANUAL) 5 % (0-4); LYMPHOCYTES % (MANUAL) 14 % (16-48); MONOCYTES % (MANUAL) 8 % (0-11.0); NEUTROPHILS % (MANUAL) 73 (42-76)
[2018-11-02] MEDS: Z GUARD REMEDY 2 OZ OINT TP SCH (08:08)
[2018-11-02] MEDS: RIFAXIMIN 550 MG TABLET PO SCH ×2 (08:08→16:34)
[2018-11-02] MEDS: OSELTAMIVIR PHOSPHATE 75 MG CAPSULE PO SCH (08:08)
[2018-11-02] MEDS: LACTULOSE 10 G/15 ML UDC (PYXIS) PO SCH ×3 (08:08→16:34)
[2018-11-02] MEDS: GLUCERNA SHAKE 237 ML CAN PO SCH ×3 (08:08→18:00)
[2018-11-02] MEDS: PANTOPRAZOLE 40 MG/PACK PACK GT SCH (08:08)
[2018-11-02] MEDS: FUROSEMIDE 40 MG/4 ML VIAL IV SCH ×2 (08:09→16:34)
[2018-11-02 08:23] LABS: ABG BASE EXCESS 4.1 mmol/L; ABG OXYGEN SATURATION 94.6 % (92.0-98.5); ABG PH 7.419 (7.350-7.450); ABG PO2 78.6 mmHg (75.0-100.0); AaDO2 37.8 mmHg; COHb 0.3 % (0.5-1.5); MetHb 1.5 % (0.0-1.5); O2Hb 92.9 % (94.0-97.0); SITE, ABG Right Radial; VENT MODE, BG NASAL CANNULA
--- NOTE | 2018-11-02 09:10 | NUR ---
RN NOTE 0715: Received patient off Bipap, on 1 LPM O2 via NC, tolerated. No respiratory distress noted at this time. Off pressors, SBP on 90-100's. With SUKHDEV PICC intact. Garcia cath intact, noted with anamaria colored urine drained to BSD. With Rectal tube, noted with loose greenish to brownish stool. On iso prec for VRE/ESBL blood, maintained and observed. 0900: S/E by Dr. Gonsalez and Dr. Sepulveda, with order to may transfer to [facility], CN aware.
--- NOTE | 2018-11-02 10:00 | NUR ---
[facility] MEDICAL RECORDS ADMINISTRATOR NOTES RECEIVED PT FROM ICU TO ROOM 108,CONFUSED AND SCREAMING,[place]UWAIT[place] SPEAKING PT.ALERT/ORIENTED X1.ON TELE HR IS 115 ST,ON NC 1L O2 CONTINUOUSLY,NO SOB AND ACUTE DISTRESS NOTED.PICC LINE IS ON LEFT UA,SITE IS MILD BLOODY,DRY AND INTACT.PATENT AND FLUSHED.FC IS IN PLACE WITH BLOOD THREADS,FLEXISEAL IS IN PLACE WITH GREENISH LOOSE STOOL.B/L WRIST RESTRAINTS PRESENT,SKIN IS INTACT.SAFETY IS MAINTAINED MIRNA LL TIMES,BED IS IN LOW POSITION AND LOCKED.CALL LIGHT IS WITHIN REACH.WILL CONTINUE TO MONITOR THE PT CLOSELY.
--- NOTE | 2018-11-02 10:09 | NUR ---
RN NOTE 0930: Called daughter Massiel but no answer, left message and made aware re: the order of transfer to [facility]. 0940: Received a call from Dr. Gonsalez, he mentioned he spoke with daughter and obtained order to change code status to DNR/DNI and Hospice eval, carried out and ordered case mgnt consult for hospice. 0950: transferred patient via protocol. No any significant changes noted. VSS.
[2018-11-02] MEDS ORDERED: POTASSIUM CHLORIDE 20 MEQ POWDER PACKET PO SCH (11:00)
[2018-11-02] MEDS: ACETAMINOPHEN 650 MG/20.3 ML UDC NG PRN (12:10)
[2018-11-02] MEDS: IV NS 0.9% 100 ML IV PRN (12:30)
[2018-11-02] MEDS: DAPTOMYCIN 600 MG in IV NS 0.9% 50 ML IV SCH (15:20)
[2018-11-02] MEDS ORDERED: DOSING PER PHARMACY-AMIKACI IV XX PRN (16:30)
[2018-11-02] MEDS: oxyCODONE IR immediate release 5 MG PO PRN ×2 (16:40→21:56)
--- NOTE | 2018-11-02 17:30 | NUR ---
SENIOR ACCOUNTS PAYABLE SPECIALIST NOTES BLOOD TRANSFUSION HAS STARTED,VITAL SIGNS ARE CHECKED AND RECORDED.NO COMPLICATIONS NOTED.
[2018-11-02] MEDS ORDERED: FEE PK DOSING 1 MIN EA MC ONE (17:32)
[2018-11-02] MEDS ORDERED: AMIKACIN 750 MG in IV D5W 100 ML IV SCH (18:00)
--- NOTE | 2018-11-02 19:00 | NUR ---
COMPLAINTS COORDINATOR CLOSING NOTES PT IS LYING ON BED,HAVING BLOOD TRANSFUSION NOW,TOLERATING WELL.CONTINUOS MONITORING ON VITAL SIGNS.NO ADVERSE REACTIONS NOTED SO FAR.NO SIGNIFICANT CHANGES NOTED IN THE SHIFT.ALL DUE MEDS ARE GIVEN.ENDORSE TO NEXT SHIFT RN TO CONTINUE THE BLOOD TRANSFUSIONS.
--- NOTE | 2018-11-02 20:00 | NUR ---
[facility] RN NOTES RECEIVED PT REPORT FROM AM RN , PATIENT IS A/OX2 CONFUSED,MAURITANIAN SPEAKING. FAMILY MEMBERS ARE AT THE BEDSIDE. PT.ON TELE HR IS 111 ST,ON NC 1L O2 CONTINUOUSLY,NO SOB AND ACUTE DISTRESS NOTED AT THIS TIME. PICC LINE IS ON LEFT UPPER ARM,SITE IS MILD BLOODY,DRY AND INTACT.PATENT AND FLUSHED .FC IS IN PLACE DRAINING ON GRAVITY ,FLEXISEAL IS IN PLACE WITH GREENISH LOOSE STOOL.B/L WRIST RESTRAINTS PRESENT,SKIN IS INTACT.SAFETY IS MAINTAINED AT ALL TIMES,BED IS IN LOW POSITION AND LOCKED.CALL LIGHT IS WITHIN REACH.WILL CONTINUE TO MONITOR THE PT CLOSELY.
--- NOTE | 2018-11-02 20:30 | NUR ---
RN NOTES BLOOD TRANSFUSION HAS BEEN COMPLETED W/O ANY ALLERGIC REACTIONS, V/S ARE WN PATIENT IS STABLE, FAMILY MEMBERS ARE AT THE BEDSIDE. WILL CONTINUE TO MONITOR PATIENT.
[2018-11-02] MEDS: AMIKACIN 750 MG in IV D5W 100 ML IV SCH (21:57)
--- NOTE | 2018-11-02 23:21 | NUR ---
RT NOTE PT PLACED ON BIPAP FOR THE NIGHT, ALARMS ARE ON AND AUDIBLE. FAMILY IS AT BEDSIDE. NO RESP DISTRESS NOTED AT THIS TIME. BREATHING TX GIVEN, NO ADVERSE REACTIONS NOTED. WILL CONT TO MONITOR PT. Addendum: 11/02/18 at 2322 by ABBE MOORE RT Amended: Links added.
[2018-11-03] VITALS (8 sets, daily range): BP systolic 103–122; BP diastolic 58–79
[2018-11-03] MEDS: BLOOD SUGAR DIAGNOSTIC 1 EACH STRIP IN SCH ×5 (01:12→23:10)
--- NOTE | 2018-11-03 02:55 | NUR ---
RT NOTE PT DOES NOT WANT BIPAP ON ANYMORE. FAMILY ASKED TO TAKE IT OFF. NO RESP DISTRESS NOTED. SPO2 99% HR 103.
[2018-11-03] MEDS: IPRATROPIUM NEB FS 0.5 MG/2.5 ML AMPUL.NEB NEB SCH ×6 (03:05→23:16)
[2018-11-03] MEDS: ALBUTEROL FS 2.5 MG/0.5 ML VIAL.NEB NEB SCH ×6 (03:05→23:16)
[2018-11-03 06:40] LABS: BASOPHILS % (AUTO) 0.8 % (0.0-2.0); EOSINOPHILS % (AUTO) 7.1 % (0.0-6.0); HEMATOCRIT 25 % (33-45); HEMOGLOBIN 8.5 g/dL (11.5-14.8); LYMPHOCYTES # (AUTO) 0.4 /CMM (0.8-4.8); LYMPHOCYTES % (AUTO) 16.2 % (20.0-44.0); MEAN CORPUSCULAR HGB CONC 34 g/dl (31.0-36.0); MEAN CORPUSCULAR VOLUME 93 fL (82-100); MONOCYTES # (AUTO) 0.3 /CMM (0.1-1.30); MONOCYTES % (AUTO) 10.6 % (2.0-12.0); NEUTROPHILS # (AUTO) 1.7 /CMM (1.8-8.9); NEUTROPHILS % (AUTO) 65.3 % (43.0-81.0); RED BLOOD CELL COUNT(AUTO) 2.71 MIL/uL (4.0-5.2); WHITE BLOOD COUNT (AUTO) 2.7 K/uL (4.3-11.0)
[2018-11-03 06:51] LABS: PLATELET COUNT (AUTO) 24 /CMM (150-450)
--- NOTE | 2018-11-03 06:53 | NUR ---
GOT A CALL FROM LAB PATIENT'S PLT COUNT IS 24 , IT IS TRENDING UP. WILL ENDORSE IT TO AM RN FOR LATHE TURNER.
[2018-11-03 06:58] LABS: CALCIUM, SERUM 9.3 mg/dL (8.5-10.1); CREATININE 0.8 mg/dL (0.6-1.3); POTASSIUM 3.3 mmol/L (3.5-5.1)
[2018-11-03] MEDS: GLUCERNA SHAKE 237 ML CAN PO SCH ×3 (08:00→17:45)
--- NOTE | 2018-11-03 08:00 | NUR ---
TELE1/RN AM SHIFT INITIAL NOTES RECEIVED PT AWAKE IN BED, PT A/O X 1 ABLE TO VERBALIZED IN KHMER, NO ACUTE CHANGE OF CONDITION, BUT PT IS CONFUSED, ON 1L O2 VIA N/C SATURATING @ 100%, LUNG SOUNDS DIMINISHED, RESPIRATIONS EVEN AND UNLABORED. ON TELE MONITORING WITH READING SINUS TACHY, HR 111. PICC LINE PATENT WITH ON GOING TKO, NO S/S OF INFECTION. BILATERAL WRIST RESTRAINTS PLACED, RELEASED TO CHECK FOR COMFORT THEN PLACED BACK. LIMON CATHETER INTACT WITH YELLOW URINE OUTPUT. RECTAL TUBE IN PLACED WITH LIQUID BROWN FECAL OUTPUT. PT NOTED WITH GENERALIZED EDEMA. DR. HAIR MADE AWARE OF PT'S FAMILY FOR A HOSPICE EVALUATION. PT WAS ALSO SEEN BY WOUND NURSE CINDY, NO NEW ORDERS OF TREATMENT RECEIVED AT THIS TIME. PT IS COMFORTABLE, SCHEDULED AM MEDS TO BE GIVEN, CL WITHIN REACHED, SAFETY MAINTAINED AND ISOLATION PROTOCOL OBSERVED. ON GOING MONITORING.
[2018-11-03 08:36] LABS: ABG BASE EXCESS 3.9 mmol/L; ABG OXYGEN SATURATION 96.3 % (92.0-98.5); ABG PCO2 48.4 mmHg (35.0-45.0); ABG PO2 94.1 mmHg (75.0-100.0); AaDO2 106.4 mmHg; COHb 0.5 % (0.5-1.5); MetHb 0.8 % (0.0-1.5); SITE, ABG Right Radial; VENT MODE, BG N/C 4LPM
[2018-11-03 09:00] LABS: BAND % (MANUAL) 1 % (0.0-5.0); EOSINOPHILS % (MANUAL) 6 % (0-4); LYMPHOCYTES % (MANUAL) 11 % (16-48); MONOCYTES % (MANUAL) 11 % (0-11.0); NEUTROPHILS % (MANUAL) 71 (42-76)
[2018-11-03] MEDS: LACTULOSE 10 G/15 ML UDC (PYXIS) PO SCH ×3 (09:20→17:45)
[2018-11-03] MEDS: AMIKACIN 750 MG in IV D5W 100 ML IV SCH ×2 (09:21→22:47)
[2018-11-03] MEDS: PANTOPRAZOLE 40 MG/PACK PACK GT SCH (09:22)
[2018-11-03] MEDS: RIFAXIMIN 550 MG TABLET PO SCH ×2 (09:22→17:45)
[2018-11-03] MEDS: FUROSEMIDE 40 MG/4 ML VIAL IV SCH ×2 (09:22→17:45)
[2018-11-03] MEDS: Z GUARD REMEDY 2 OZ OINT TP SCH (10:04)
--- NOTE | 2018-11-03 10:17 | NUR ---
WOUND CARE CONSULT: PT SEEN FOR REASSESSMENT OF SKIN INCLUDING RT KNEE WOUND (PREVIOUSLY WITH DEVYN), RT BREASTFOLD REDNESS WITH MOISTURE ASSOCIATED OPEN SKIN AND BILATERAL BUTTOCK DEEP TISSUE INJURIES (NOW IN EVOLUTION), ALL PRESENT ON ADMISSION. PT ON [facility] AIR BED. ALL SKIN PROTECTION AND WOUND CARE RECOMMENDATIONS DISCUSSED WITH NURSING STAFF. WILL SEE PRN. PEREZ IN AGREEMENT WITH PLAN OF CARE. Addendum: 11/03/18 at 1021 by CINDY CHAVEZ WNDNU Amended: Links added.
[2018-11-03] MEDS ORDERED: HYDROGEL DRESSING 90 GM TUBE TP PRN (10:30)
--- NOTE | 2018-11-03 12:00 | NUR ---
TELE1/RN NOON ROUNDS NO CHANGE OF CONDITION. MONITORING CONTINUED.
[2018-11-03] MEDS: HYDROGEL DRESSING 90 GM TUBE TP SCH (12:38)
[2018-11-03] MEDS: POTASSIUM CHLORIDE 20 MEQ TAB.PRT.SR PO SCH ×2 (12:38→14:33)
[2018-11-03] MEDS: NEOMY SULF/BACITRAC ZN/POLY 15 GM TUBE TP SCH (12:39)
[2018-11-03] MEDS: DAPTOMYCIN 600 MG in IV NS 0.9% 50 ML IV SCH (12:42)
[2018-11-03] MEDS: INSULIN REGULAR, HUMAN 100 UNIT/ML 3 ML VIAL SQ PRN (12:46)
--- NOTE | 2018-11-03 17:30 | NUR ---
TELE1/RN AFTERNOON ROUNDS PM CARE PROVIDED, NO CHANGE OF CONDITION. MONITORING CONTINUED.
[2018-11-03] MEDS: oxyCODONE IR immediate release 5 MG PO PRN (17:56)
--- NOTE | 2018-11-03 19:35 | NUR ---
TELE1/RN AM SHIFT END NOTES NO ACUTE CHANGE OF CONDITION NOTED DURING THE SHIFT. ALL NEEDS MET. PT ENDORSED TO PM NURSE TO CONTINUE CARE. CL WITHIN REACHED, SAFETY MAINTAINED AND ISOLATION OBSERVED.
--- NOTE | 2018-11-03 20:00 | NUR ---
RN INITIAL NOTES RECEIVED PT REPORT RESTING IN BED , PATIENT IS A/OX2 CONFUSED,FRISIAN SPEAKING. FAMILY MEMBERS ARE AT THE BEDSIDE. PT.ON TELE HR IS 111 ST,ON BIPAP, NO SOB AND ACUTE DISTRESS NOTED AT THIS TIME. PICC LINE IS ON RIGHT UPPER ARM,SITE IS DRY AND INTACT.PATENT AND FLUSHED .FC IS IN PLACE DRAINING ON GRAVITY ,FLEXISEAL IS IN PLACE WITH GREENISH LOOSE STOOL.B/L WRIST RESTRAINTS PRESENT,SKIN IS INTACT.SAFETY IS MAINTAINED AT ALL TIMES,BED IS IN LOW POSITION AND LOCKED.CALL LIGHT IS WITHIN REACH.WILL CONTINUE TO MONITOR THE PT CLOSELY.
[2018-11-04] VITALS: BP 103/56
[2018-11-04] MEDS: ALBUTEROL FS 2.5 MG/0.5 ML VIAL.NEB NEB SCH ×6 (03:00→23:41)
[2018-11-04] MEDS: IPRATROPIUM NEB FS 0.5 MG/2.5 ML AMPUL.NEB NEB SCH ×6 (03:00→23:41)
[2018-11-04 04:00] VITALS: BP 113/65
[2018-11-04] MEDS: BLOOD SUGAR DIAGNOSTIC 1 EACH STRIP IN SCH ×3 (06:10→18:33)
[2018-11-04 06:37] LABS: BASOPHILS % (AUTO) 0.6 % (0.0-2.0); CALCIUM, SERUM 9.1 mg/dL (8.5-10.1); CREATININE 0.8 mg/dL (0.6-1.3); EOSINOPHILS % (AUTO) 4.6 % (0.0-6.0); HEMATOCRIT 26 % (33-45); HEMOGLOBIN 8.8 g/dL (11.5-14.8); LYMPHOCYTES # (AUTO) 0.6 /CMM (0.8-4.8); LYMPHOCYTES % (AUTO) 17.9 % (20.0-44.0); MEAN CORPUSCULAR HGB CONC 34 g/dl (31.0-36.0); MEAN CORPUSCULAR VOLUME 93 fL (82-100); MONOCYTES # (AUTO) 0.3 /CMM (0.1-1.30); MONOCYTES % (AUTO) 8.2 % (2.0-12.0); NEUTROPHILS # (AUTO) 2.4 /CMM (1.8-8.9); NEUTROPHILS % (AUTO) 68.7 % (43.0-81.0); POTASSIUM 3.2 mmol/L (3.5-5.1); RED BLOOD CELL COUNT(AUTO) 2.78 MIL/uL (4.0-5.2); WHITE BLOOD COUNT (AUTO) 3.5 K/uL (4.3-11.0)
[2018-11-04 06:50] LABS: PLATELET COUNT (AUTO) 27 /CMM (150-450)
--- NOTE | 2018-11-04 07:25 | NUR ---
RECEIVED REPORT FROM LICENSING ENGINEER RN. PT IS NAURUAN SPEAKING WITH SOME SETSWANA. PT HAS A PICC LINE IN SUKHDEV. PT IS ON 2L O2 VIA NC. PT IS A&O X2. PT HAS A FLEXISEAL AND LIMON CATHETER DRAINING TO GRAVITY. CALL LIGHT WITHIN REACH. WILL CONTINUE TO MONITOR. HR 90'S.
--- NOTE | 2018-11-04 07:38 | NUR ---
RN CLOSING NOTES NO ACUTE CHANGE OF CONDITION NOTED DURING THE SHIFT. ALL NEEDS MET. PT ENDORSED TO AM NURSE TO CONTINUE CARE. CL WITHIN REACHED, SAFETY MAINTAINED AND ISOLATION OBSERVED.
[2018-11-04 08:00] VITALS: BP 125/57
[2018-11-04] MEDS: GLUCERNA SHAKE 237 ML CAN PO SCH ×3 (08:37→17:39)
[2018-11-04] MEDS: RIFAXIMIN 550 MG TABLET PO SCH ×2 (08:47→17:39)
[2018-11-04] MEDS: AMIKACIN 750 MG in IV D5W 100 ML IV SCH (08:47)
[2018-11-04] MEDS: LACTULOSE 10 G/15 ML UDC (PYXIS) PO SCH ×4 (08:48→23:09)
[2018-11-04 08:49] LABS: BAND % (MANUAL) 1 % (0.0-5.0); EOSINOPHILS % (MANUAL) 6 % (0-4); LYMPHOCYTES % (MANUAL) 8 % (16-48); MONOCYTES % (MANUAL) 8 % (0-11.0); NEUTROPHILS % (MANUAL) 77 (42-76)
[2018-11-04] MEDS: PANTOPRAZOLE 40 MG/PACK PACK GT SCH (08:49)
[2018-11-04] MEDS: FUROSEMIDE 40 MG/4 ML VIAL IV SCH (08:49)
[2018-11-04] MEDS: NEOMY SULF/BACITRAC ZN/POLY 15 GM TUBE TP SCH (08:50)
[2018-11-04] MEDS: HYDROGEL DRESSING 90 GM TUBE TP SCH (08:50)
[2018-11-04] MEDS: Z GUARD REMEDY 2 OZ OINT TP SCH (08:51)
[2018-11-04] MEDS ORDERED: POTASSIUM CHLORIDE 20 MEQ POWDER PACKET PO SCH (10:00)
[2018-11-04] MEDS ORDERED: POTASSIUM CHLORIDE 20 MEQ TAB.PRT.SR PO ONE (11:30)
[2018-11-04] MEDS: oxyCODONE IR immediate release 5 MG PO PRN ×2 (11:34→23:10)
[2018-11-04 12:00] VITALS: BP_SYST 116; BP_SYST 120; BP_DIAS 63; BP_DIAS 64
[2018-11-04] MEDS: DAPTOMYCIN 600 MG in IV NS 0.9% 50 ML IV SCH (13:15)
[2018-11-04] MEDS: INSULIN REGULAR, HUMAN 100 UNIT/ML 3 ML VIAL SQ PRN ×2 (13:18→18:34)
[2018-11-04 16:00] VITALS: BP 132/82
--- NOTE | 2018-11-04 16:17 | NUR ---
UNABLE TO PERFORM THE US , DUE TO THE INFORMATION ON THE ORDER, LOBO FOSS TRIED TO REACH THE ORDERING AUTOMOTIVE MACHINIST APPRENTICE BUT NO RESPONSE, ,, THE AUTOMOTIVE MACHINIST APPRENTICE NEEDS TO BE SPECIFIC ON THE REASON OF THE EXAM
--- NOTE | 2018-11-04 19:17 | NUR ---
RN CLOSING NOTES GAVE REPORT TO WHISTLE PUNK RN. PT IS BENGALI SPEAKING WITH SOME JAPANESE. PT HAS A PICC LINE IN SUKHDEV. PT IS ON 2L O2 VIA NC. PT IS A&O X2. PT HAS A FLEXISEAL AND LIMON CATHETER DRAINING TO GRAVITY. CALL LIGHT WITHIN REACH. WILL ENDORSE CONTINUITY OF CARE TO WHISTLE PUNK RN.
--- NOTE | 2018-11-04 19:35 | NUR ---
RN NOTES RECEIVED PATIENT AWAKE IN BED ALERT ORIENTED X 2, ON O2 AT 2LPM VIA NC SATING 97%, BREATHING EVEN AND UNLABORED, LIMON CATHETER INTACT AND PATENT, DRAINING TO A YELLOW URINE OUTPUT, NO SEDIMENTATION NOTED AT THIS TIME, ALL SAFETY MEASURES IN PLACED, ASPIRATION PRECAUTION MAINTAINED, WITH FACIAL GRIMACING NOTED, MALDIVIAN SPEAKING WITH SOME JAPANESE. ALL NEEDS ATTENDED, WILL CONTINUE TO MONITOR.
--- NOTE | 2018-11-04 19:50 | NUR ---
RN NOTES SPOKE WITH CIRCULAR KNITTER ANN,FROM OTHER FACILITY, MAY DISCHARGE TONIGHT, BARIATRIC BED IS AVAILABLE FOR TRANSPORT AND REJECTOR TIME WILL BE AROUND 2330 TONIGHT 11/04/18 PER CIRCULAR KNITTER ANN. CHARGE NURSE AWARE.
[2018-11-04 20:00] VITALS: BP 123/82
--- NOTE | 2018-11-04 20:10 | NUR ---
RN NOTES SPOKE WITH DR. HAIR TO CONTINUE ALL MEDICATIONS ANTIBIOTIC FOR FIVE (5) MORE DAYS.
[2018-11-04] MEDS ORDERED: [UNRECOGNIZED DRUG - CODE] MC (20:38)
--- NOTE | 2018-11-04 20:50 | NUR ---
RN NOTES CALLED AND SPOKE WITH CHARGE NURSE MIGUEL FROM [facility]. REPORT GIVEN REGARDING PATIENT'S CURRENT CONDITION.
--- NOTE | 2018-11-04 20:55 | NUR ---
RN NOTES DAUGHTER ARRIVED IN THE UNIT, INFORMED HER REGARDING PATIENT'S CURRENT CONDITION AND PLAN OF CARE.
[2018-11-04] MEDS ORDERED: [UNRECOGNIZED DRUG - CODE] IV ×2 (21:18→21:19)
--- NOTE | 2018-11-04 22:00 | NUR ---
RN NOTES DAUGHTER DECIDED NOT TO DISCHARGE AND TRANSFER PATIENT TO SNF AT [facility] DUE TO DISTANCE FROM HER HOME. CHARGE NURSE AWARE. ALL NEEDS ATTENDED, CALLED AND LEFT MESSAGE TO [facility] AND SPOKE WITH THE CHARGE NURSE MADISYN AT [facility], INFORMED HER REGARDING DAUGHTER'S DECISION OF NOT WANTING TO TRANSFER TO THEIR FACILITY, DR. HAIR IS AWARE OF PATIENTS' DAUGHTERS' DECISION. WILL CONTINUE TO MONITOR AT THIS TIME, DAUGHTER AT BEDSIDE.
[2018-11-05] VITALS: BP 123/82
--- NOTE | 2018-11-05 01:30 | NUR ---
RN NOTES TRANSPORT CAME, INFORMED THEM THAT PATIENTS' DAUGHTER REFUSED TO BE DISCHARGE TODAY.
[2018-11-05] MEDS: ALBUTEROL FS 2.5 MG/0.5 ML VIAL.NEB NEB SCH ×5 (03:48→19:28)
[2018-11-05] MEDS: IPRATROPIUM NEB FS 0.5 MG/2.5 ML AMPUL.NEB NEB SCH ×5 (03:48→19:28)
[2018-11-05 04:42] VITALS: BP 126/72
[2018-11-05] MEDS: BLOOD SUGAR DIAGNOSTIC 1 EACH STRIP IN SCH ×4 (06:26→17:01)
--- NOTE | 2018-11-05 07:14 | NUR ---
RN NOTES ALL NEEDS ATTENDED AND MET, KEPT CLEAN DRY AND COMFORTABLE,ENDORSE TO AM NURSE FOR CONTINUITY OF CARE.
[2018-11-05 07:38] LABS: BASOPHILS % (AUTO) 0.4 % (0.0-2.0); EOSINOPHILS % (AUTO) 3.9 % (0.0-6.0); HEMATOCRIT 27 % (33-45); HEMOGLOBIN 8.8 g/dL (11.5-14.8); LYMPHOCYTES # (AUTO) 0.6 /CMM (0.8-4.8); LYMPHOCYTES % (AUTO) 15.6 % (20.0-44.0); MEAN CORPUSCULAR HGB CONC 33 g/dl (31.0-36.0); MEAN CORPUSCULAR VOLUME 95 fL (82-100); MONOCYTES # (AUTO) 0.3 /CMM (0.1-1.30); MONOCYTES % (AUTO) 6.6 % (2.0-12.0); NEUTROPHILS # (AUTO) 2.9 /CMM (1.8-8.9); NEUTROPHILS % (AUTO) 73.5 % (43.0-81.0); RED BLOOD CELL COUNT(AUTO) 2.81 MIL/uL (4.0-5.2); WHITE BLOOD COUNT (AUTO) 3.9 K/uL (4.3-11.0)
[2018-11-05 07:47] LABS: PLATELET COUNT (AUTO) 29 /CMM (150-450)
[2018-11-05 07:51] LABS: CALCIUM, SERUM 9.5 mg/dL (8.5-10.1); CREATININE 0.9 mg/dL (0.6-1.3); POTASSIUM 3.2 mmol/L (3.5-5.1)
[2018-11-05 08:00] VITALS: BP 123/67
[2018-11-05] MEDS: GLUCERNA SHAKE 237 ML CAN PO SCH ×3 (08:00→16:52)
[2018-11-05] MEDS ORDERED: LACT10SO PO (08:30)
[2018-11-05] MEDS: oxyCODONE IR immediate release 5 MG PO PRN (08:47)
[2018-11-05] MEDS: LACTULOSE 10 G/15 ML UDC (PYXIS) PO SCH ×3 (08:51→16:51)
[2018-11-05] MEDS: PANTOPRAZOLE 40 MG/PACK PACK GT SCH (08:55)
[2018-11-05 08:56] LABS: BAND % (MANUAL) 1 % (0.0-5.0); EOSINOPHILS % (MANUAL) 4 % (0-4); LYMPHOCYTES % (MANUAL) 14 % (16-48); MONOCYTES % (MANUAL) 1 % (0-11.0); NEUTROPHILS % (MANUAL) 80 (42-76)
[2018-11-05] MEDS: RIFAXIMIN 550 MG TABLET PO SCH ×2 (08:56→16:52)
[2018-11-05] MEDS ORDERED: POTASSIUM CHLORIDE 20 MEQ TAB.PRT.SR PO ONE (09:00)
[2018-11-05] MEDS ORDERED: FUROSEMIDE 40 MG/4 ML VIAL IV SCH (09:00)
[2018-11-05] MEDS ORDERED: AMIKACIN 250 MG/ML VIAL IM SCH (09:00)
[2018-11-05] MEDS: HYDROGEL DRESSING 90 GM TUBE TP SCH (09:09)
[2018-11-05] MEDS: NEOMY SULF/BACITRAC ZN/POLY 15 GM TUBE TP SCH (09:09)
[2018-11-05] MEDS: Z GUARD REMEDY 2 OZ OINT TP SCH (09:17)
[2018-11-05] MEDS ORDERED: AMIKACIN 500 MG in IV D5W 100 ML IV SCH (10:00)
[2018-11-05] MEDS ORDERED: POTASSIUM CHLORIDE 20 MEQ POWDER PACKET PO SCH (10:00)
[2018-11-05] MEDS: INSULIN REGULAR, HUMAN 100 UNIT/ML 3 ML VIAL SQ PRN ×2 (12:22→17:04)
[2018-11-05] MEDS: DAPTOMYCIN 600 MG in IV NS 0.9% 50 ML IV SCH (12:26)
[2018-11-05 16:00] VITALS: BP 140/97
--- NOTE | 2018-11-05 19:30 | NUR ---
RN NOTE REPORT GIVEN TO NERI DIAM[facility] REGARD[facility] PT BEING DISCHARGED. UMBRELLA CUTTER TIME 2029, WILL ENDORSE TO PEG DRIVER NURSE.
--- NOTE | 2018-11-05 19:40 | NUR ---
MS/RN OPENING NOTES PT RECEIVED AWAKE, SITTING UP IN BED RECEIVING BREATHING TX. MULTIPLE FAMILY MEMBERS AT BEDSIDE. BREATHING EVEN AND UNLABORED. A/OX2. SUKHDEV PICC LINE PATENT AND INTACT. LIMON IN PLACE AND DRAINING TO GRAVITY. FLEXI SEAL IN PLACE AND DRAINING TO GRAVITY. IN NO ACUTE DISTRESS. BED IN LOW/LOCKED POSITION WITH CALL LIGHT IN REACH. SIDE RAILS UPX3. PLAN FOR DISCHARGE TONIGHT AT 2030 VIA AMBULANCE. PATIENT AWARE. REPORT GIVEN BY DAY SHIFT RN. WILL CONTINUE TO MONITOR
[2018-11-05 20:00] VITALS: BP 110/68
--- NOTE | 2018-11-05 20:06 | NUR ---
MS/RN NOTES PT UNABLE TO SIGN DISCHARGE PAPERWORK. DAUGHTER, DAVID BERMEO DOES NOT WANT TO SIGN DC PAPERWORK FOR REASON NOT DISCLOSED TO RN. DC PAPER WITNESSED WITH CHURCH WARDEN
--- NOTE | 2018-11-05 21:45 | NUR ---
MS/RN NOTES PT DISCHARGE VIA AMBULANCE TO [facility] IN ST[facility] CONDITION. DISCHARGE PAPERWORK COMPLETED AND SENT WITH PT. LIMON AND FLEXISEAL REMOVED. SUKHDEV PICC IN PLACE. PT LEFT WITH ONLY 1 YELLOW/ESTUARDO RING ON RIGHT HAND, NOTED IN BELONGINGS LIST PRIOR TO DC.
[2018-11-06] MEDS ORDERED: AMIKACIN 500 MG in IV D5W 100 ML IV SCH (13:00)
== END 2018-11-05 23:55 | DRG 720 ==
LOC: ER 08:53 → ICU 11:15 → TELE-TD 11-02 09:25 → TELE1 11-02 14:52 → MEDSG1 11-04 16:56
PROVIDERS: ADMIT Internal Medicine; ATTEND Internal Medicine
PROC: 5A1945Z Respiratory Ventilation, 24-96 Consecutive Hours (ICD-10-PCS; principal; 2018-10-22)
PROC: 0BH17EZ Insertion of Endotracheal Airway into Trachea, Via Natural or Artificial Opening (ICD-10-PCS; principal; 2018-10-22)
PROC: 0W993ZZ Drainage of Right Pleural Cavity, Percutaneous Approach (ICD-10-PCS; 2018-10-23)
PROC: 30233N1 Transfusion of Nonautologous Red Blood Cells into Peripheral Vein, Percutaneous Approach (ICD-10-PCS; 2018-10-24)
PROC: 5A1945Z Respiratory Ventilation, 24-96 Consecutive Hours (ICD-10-PCS; 2018-10-27)
PROC: 02HV33Z Insertion of Infusion Device into Superior Vena Cava, Percutaneous Approach (ICD-10-PCS; 2018-10-30)
PROC: B548ZZA Ultrasonography of Superior Vena Cava, Guidance (ICD-10-PCS; 2018-10-30)
PROC: 30233R1 Transfusion of Nonautologous Platelets into Peripheral Vein, Percutaneous Approach (ICD-10-PCS; 2018-11-02)
DX: A41.9 Sepsis, unspecified organism (principal); J96.21 Acute and chronic respiratory failure with hypoxia; R65.21 Severe sepsis with septic shock; E43 Unspecified severe protein-calorie malnutrition; G92 Toxic encephalopathy; J18.9 Pneumonia, unspecified organism; D61.818 Other pancytopenia; J96.22 Acute and chronic respiratory failure with hypercapnia; N17.9 Acute kidney failure, unspecified; E87.1 Hypo-osmolality and hyponatremia; E86.0 Dehydration; E11.9 Type 2 diabetes mellitus without complications; D69.6 Thrombocytopenia, unspecified; E87.2 Acidosis; I11.0 Hypertensive heart disease with heart failure; J98.11 Atelectasis; K72.90 Hepatic failure, unspecified without coma; B19.20 Unspecified viral hepatitis C without hepatic coma; E87.5 Hyperkalemia; D64.9 Anemia, unspecified; K74.60 Unspecified cirrhosis of liver; Z68.43 Body mass index [BMI] 50.0-59.9, adult; Z79.899 Other long term (current) drug therapy; Z66 Do not resuscitate; Z51.5 Encounter for palliative care; G89.29 Other chronic pain; E66.2 Morbid (severe) obesity with alveolar hypoventilation; J90 Pleural effusion, not elsewhere classified; Y95 Nosocomial condition; B96.4 Proteus (mirabilis) (morganii) as the cause of diseases classified elsewhere; B96.20 Unspecified Escherichia coli [E. coli] as the cause of diseases classified elsewhere; I50.9 Heart failure, unspecified; B19.10 Unspecified viral hepatitis B without hepatic coma
CPT/HCPCS: 31720; 36415; 36569; 36600; 71045-TC; 76705-TC; 76942-TC; 80048-TC; 80053-TC; 80076-TC; 80150; 80202-TC; 81000-TC; 82140-TC; 82533; 82550-TC; 82803-TC; 82962-TC; 83605-TC; 83615-TC; 83735-TC; 83880; 84132-TC; 84155-TC; 84484-TC; 85025-TC; 85610-TC; 85730-TC; 86850-TC; 86921-TC; 87040-TC; 87070-TC; 87075-TC; 87081-TC; 87086-TC; 87102-TC; 87186-TC; 87340; 87806; 88305-TC; 88312-TC; 89051-TC; 92521; 92526; 94002-TC; 94003-TC; 94660; 94760-TC; 94762-TC; 94799-TC; 99082-TC; A4216; A6248; A6253; A6402; A6403; C1751; C9113; G0378; J0278; J0330; J0610; J0878; J1644; J1815; J1940; J2020; J2185; J2543; J3370; J3490; J7030; J7040; J7050; J7060; P9016-BL; P9034-BL

== ENCOUNTER 2018-11-14 14:53 | Emergency (ER) | payer MEDICAID ==
[~2018-11-14] VITALS: Ht 167.6 cm; Wt 159.2 kg
[~2018-11-14 14:53] MED LIST: BENA20TA9 PO; BISA10SU8 RC; BLOO-668 IN; FERR325T23 PO; FURO-144 PO; HYDR-4384 PO; INSU100V11 SQ; LACT10SO PO; MAGN400O6 PO; MORP15TA PO; MULT-447 PO; NA P133E RC; RIFA550T PO; TRAM50TA2 PO
--- NOTE | 2018-11-14 15:05 | NUR ---
PT DWAYNE FROM [facility]); FOR ABNORMAL LABS; PT AAOX2-3, PT ON MONITOR, VSS, NAD NOTED, PENDING MD KELLER
[2018-11-14 15:42] LABS: BASOPHILS % (AUTO) 0.3 % (0.0-2.0); EOSINOPHILS % (AUTO) 5.6 % (0.0-6.0); HEMATOCRIT 24 % (33-45); HEMOGLOBIN 7.6 g/dL (11.5-14.8); LYMPHOCYTES # (AUTO) 0.3 /CMM (0.8-4.8); LYMPHOCYTES % (AUTO) 15.7 % (20.0-44.0); MEAN CORPUSCULAR HGB CONC 33 g/dl (31.0-36.0); MEAN CORPUSCULAR VOLUME 99 fL (82-100); MONOCYTES # (AUTO) 0.2 /CMM (0.1-1.30); MONOCYTES % (AUTO) 11.2 % (2.0-12.0); NEUTROPHILS # (AUTO) 1.4 /CMM (1.8-8.9); NEUTROPHILS % (AUTO) 67.2 % (43.0-81.0); RED BLOOD CELL COUNT(AUTO) 2.38 MIL/uL (4.0-5.2); WHITE BLOOD COUNT (AUTO) 2.1 K/uL (4.3-11.0)
[2018-11-14 15:44] LABS: PLATELET COUNT (AUTO) 35 /CMM (150-450)
[2018-11-14 15:48] LABS: CALCIUM, SERUM 8.8 mg/dL (8.5-10.1); CREATININE 1.8 mg/dL (0.6-1.3); POTASSIUM 5.3 mmol/L (3.5-5.1)
[2018-11-14 15:54] LABS: BILIRUBIN,DIRECT 1.2 mg/dL (0.0-0.2); BILIRUBIN,TOTAL 2.1 mg/dL (0.2-1.0)
[2018-11-14 15:56] LABS: ALBUMIN 1.2 g/dL (3.4-5.0)
[2018-11-14 16:21] LABS: BAND % (MANUAL) 14 % (0.0-5.0); EOSINOPHILS % (MANUAL) 8 % (0-4); LYMPHOCYTES % (MANUAL) 10 % (16-48); MONOCYTES % (MANUAL) 6 % (0-11.0); NEUTROPHILS % (MANUAL) 62 (42-76)
--- NOTE | 2018-11-14 18:50 | NUR ---
PT WILL BE SENT BACK TO FACILITY, [facility] WILL ARRANGE F/U FOR GI
--- NOTE | 2018-11-14 19:02 | NUR ---
CALLED [facility] FOR TRANSPORT BACK TO [facility], ETA [phone], TRIP #[phone]
--- NOTE | 2018-11-14 19:04 | NUR ---
CALLED FOR REPORT; NO ANSWER.
--- NOTE | 2018-11-14 19:23 | NUR ---
REPORT GIVEN TO [facility] NURSE AT [facility]
--- NOTE | 2018-11-14 19:24 | NUR ---
REPROT GIVEN TO LOBO BAIRD FOR JURGEN
[2018-11-14 21:08] VITALS: BP 102/61
== END 2018-11-14 21:10 | disposition home or self-care (01) ==
LOC: ER 14:53
DX: D61.818 Other pancytopenia (principal); G89.29 Other chronic pain; M54.5 Low back pain; R60.0 Localized edema; R00.0 Tachycardia, unspecified; E66.01 Morbid (severe) obesity due to excess calories; E11.9 Type 2 diabetes mellitus without complications; I10 Essential (primary) hypertension; Z79.4 Long term (current) use of insulin
CPT/HCPCS: 36415; 71045-TC; 80048-TC; 80076-TC; 85025-TC; 85730-TC; 86850-TC; 87081-TC

== ENCOUNTER 2018-11-17 20:06 | Emergency (ER) | payer MEDICAID ==
[~2018-11-17] VITALS: Ht 165.1 cm; Wt 163.3 kg
[2018-11-17 20:35] LABS: BASOPHILS % (AUTO) 0.1 % (0.0-2.0); EOSINOPHILS % (AUTO) 3.2 % (0.0-6.0); HEMATOCRIT 23 % (33-45); HEMOGLOBIN 7.7 g/dL (11.5-14.8); LYMPHOCYTES # (AUTO) 0.3 /CMM (0.8-4.8); LYMPHOCYTES % (AUTO) 14.9 % (20.0-44.0); MEAN CORPUSCULAR HGB CONC 33 g/dl (31.0-36.0); MEAN CORPUSCULAR VOLUME 98 fL (82-100); MONOCYTES # (AUTO) 0.2 /CMM (0.1-1.30); NEUTROPHILS # (AUTO) 1.6 /CMM (1.8-8.9); NEUTROPHILS % (AUTO) 70.8 % (43.0-81.0); RED BLOOD CELL COUNT(AUTO) 2.38 MIL/uL (4.0-5.2); WHITE BLOOD COUNT (AUTO) 2.2 K/uL (4.3-11.0)
[2018-11-17 20:37] LABS: PLATELET COUNT (AUTO) 43 /CMM (150-450)
[2018-11-17] MEDS ORDERED: OXYC10TA49 PO (20:38)
[2018-11-17] MEDS ORDERED: INSU100C10 SQ (20:51)
[2018-11-17] MEDS ORDERED: PANT40TA4 PO (20:51)
[2018-11-17] MEDS ORDERED: POTA20TA83 PO (20:51)
[2018-11-17 20:59] LABS: BILIRUBIN,DIRECT 1.1 mg/dL (0.0-0.2); BILIRUBIN,TOTAL 1.8 mg/dL (0.2-1.0); CALCIUM, SERUM 8.8 mg/dL (8.5-10.1); CREATININE 1.4 mg/dL (0.6-1.3); POTASSIUM 4.2 mmol/L (3.5-5.1); TOTAL PROTEIN, SERUM 6.3 g/dL (6.4-8.2)
[2018-11-17 21:00] LABS: ALBUMIN 1.3 g/dL (3.4-5.0)
--- NOTE | 2018-11-17 21:15 | NUR ---
CALLED DR IBARRA 'S ANSWERING SERVICE IS UNAVALABLE AT THE MOMENT. PC SUPPORT SPECIALIST WAS PAGED AT
--- NOTE | 2018-11-17 21:22 | NUR ---
CALLED [facility] FOR TRANSPORT ETA OF [phone] WAS GIVEN. TRIP#[phone]
[2018-11-17 21:45] LABS: BAND % (MANUAL) 3 % (0.0-5.0); EOSINOPHILS % (MANUAL) 1 % (0-4); LYMPHOCYTES % (MANUAL) 7 % (16-48); MONOCYTES % (MANUAL) 6 % (0-11.0); NEUTROPHILS % (MANUAL) 83 (42-76)
--- NOTE | 2018-11-17 22:46 | NUR ---
report given to estela nurse at [facility]. aware of plan of care for pt. aware of pt's being stable for transfer back to facility. eta of 1115 given.
[2018-11-17 23:41] VITALS: BP 125/80
== END 2018-11-17 23:42 ==
LOC: ER 20:18
DX: D61.818 Other pancytopenia (principal); R60.0 Localized edema; I10 Essential (primary) hypertension; E11.9 Type 2 diabetes mellitus without complications; M54.5 Low back pain; E66.01 Morbid (severe) obesity due to excess calories; Z79.4 Long term (current) use of insulin
CPT/HCPCS: 36415; 80048-TC; 80076-TC; 85025-TC; 85730-TC; 86850-TC